=== PATIENT | male | born 1950 | race Caucasian/White ===

== ENCOUNTER 2020-07-03 15:48 | Outpatient (REF) | payer BC, SELFPAY | END 2020-07-03 15:49 | disposition home or self-care (01) | LOC: HO.LAB 15:48 | PROVIDERS: PCP Internal Medicine; Visit Provider Internal Medicine | DX: Z20.828 Contact with and (suspected) exposure to other viral communicable diseases (principal) | CPT/HCPCS: C9803; U0003 ==

== ENCOUNTER 2022-04-07 06:19 | Outpatient (REF) | payer MEDICARE, SELFPAY ==
[2022-04-07 11:28] LABS: MANUAL DIFF FLAG NO
[2022-04-07 11:38] LABS: Basophils Absolute Auto 0.1 X10*3/uL (0.0-0.2); Basophils Percent Auto 0.7 % (0-2); Eosinophils Absolute Auto 0.2 X10*3/uL (0.0-0.4); Eosinophils Percent Auto 2.6 % (0-4); Hematocrit 44.3 % (42.0-52.0); Hemoglobin 15.1 g/dl (14.0-18.0); Imm Gran Abs Auto 0.02 X10*3/uL (0.00-0.03); Imm Gran Pct Auto 0.2 % (0.0-0.4); Lymphocytes Absolute Auto 2.3 X10*3/uL (1.2-4.9); Lymphocytes Percent Auto 27.6 % (20-40); Mean Corpuscular HGB Conc 34.1 g/dl (31.0-36.0); Mean Corpuscular Hemoglobin 32.1 pg (27.0-33.0); Mean Corpuscular Volume 94.3 fL (80.0-98.0); Mean Platelet Volume 9.4 fL (9.4-12.4); Monocytes Absolute Auto 0.7 X10*3/uL (0.1-1.2); Monocytes Percent Auto 7.8 % (2-11); Neutrophils Absolute Auto 5.1 x10*3/uL (2.0-8.3); Neutrophils Percent Auto 61.1 % (45-73); Platelet Count 206 X10*3/uL (160-400); Red Cell Distribution Width 12.6 % (11.0-16.0); White Blood Count 8.4 X10*3/uL (4.8-10.8)
[2022-04-07 12:24] LABS: Alanine Aminotransferase 23 U/L (0-40); Albumin Level 4.5 g/dL (3.5-5.0); Alkaline Phosphatase 75 U/L (39-117); Anion Gap 15 (12-20); Aspartate Amino Transferase 20 U/L (5-37); Bilirubin Total 0.7 mg/dL (0.0-1.0); Blood Urea Nitrogen 21 mg/dL (9-16); Calcium 9.2 mg/dL (8.4-10.2); Carbon Dioxide 25 mmol/L (22-29); Chloride 106 mmol/L (96-108); Cholesterol 171 mg/dL; Estimated Glomerular Filt Rate > 60; Glucose Fasting 124 mg/dL (60-99); HDL Cholesterol 55 mg/dL; LDL Cholesterol Calculated 102 mg/dl; Potassium 4.2 mmol/L (3.3-5.1); Sodium 142 mmol/L (135-145); Total Protein 7.1 g/dL (6.5-8.0); Triglycerides 70 mg/dL
[2022-04-07 12:29] LABS: PSA,Total (Free>4and<10) 2.17 ng/mL (0.00-4.00); Thyroid Stimulating Hormone 1.43 uIU/mL (0.32-4.0)
[2022-04-07 13:10] LABS: Folate 6.1 ng/mL (> or = 4.0); Vitamin B12 935 pg/mL (200-900)
== END 2022-04-07 06:20 | disposition home or self-care (01) ==
LOC: HO.HMGCLDS 06:19
PROVIDERS: PCP Internal Medicine; Visit Provider Internal Medicine
DX: Z12.5 Encounter for screening for malignant neoplasm of prostate (principal); I10 Essential (primary) hypertension; E55.9 Vitamin D deficiency, unspecified; G62.9 Polyneuropathy, unspecified; N52.9 Male erectile dysfunction, unspecified; F41.9 Anxiety disorder, unspecified
CPT/HCPCS: 36415; 80053; 80061; 82306; 82607; 82746; 84153; 84425; 84443; 85025

== ENCOUNTER 2022-04-15 14:02 | Outpatient (REF) | payer MEDICARE, SELFPAY ==
[2022-04-19 12:51] LABS: Vitamin B1 16 nmol/L (8-30)
== END 2022-04-15 14:03 | disposition home or self-care (01) ==
LOC: HO.HMGCLDS 14:02
PROVIDERS: PCP Internal Medicine; Visit Provider Internal Medicine
DX: I10 Essential (primary) hypertension (principal); G62.9 Polyneuropathy, unspecified; E55.9 Vitamin D deficiency, unspecified
CPT/HCPCS: 36415; 84425

== ENCOUNTER 2022-06-17 09:05 | Outpatient (REF) | payer MEDICARE, BC, SELFPAY ==
--- NOTE | ~2022-06-17 | MR_ITS ---
EXAMINATION: MR LUMBAR SPINE WITHOUT CONTRAST CLINICAL INFORMATION: Neuropathy. COMPARISON: There are no prior studies available for comparison. TECHNIQUE: MRI of the lumbar spine was obtained using routine sequences without contrast. FINDINGS: VERTEBRAL BODIES AND PARASPINAL STRUCTURES: There is a mild dextroscoliosis. There is a mild retrolisthesis of L5 on S1. There is multilevel narrowing of intervertebral disc height throughout the lumbar spine with disc desiccation. There are multilevel degenerative endplate contour changes. There is mild edematous endplate signal at L3-L4 and mixed edematous and fatty endplate signal changes are seen at L5-S1 toward the right. There are moderate fatty endplate signal changes at L2-L3 There are Schmorl's nodes at the adjacent endplates at L2-L3. Vertebral body heights maintained and no fractures are demonstrated. Overall, marrow signal is homogenous. The infrarenal abdominal aorta is tortuous and ectatic, but is not frankly aneurysmal. The visualized pelvic structures are unremarkable. CONUS MEDULLARIS AND CAUDA EQUINA: Normal, terminating at the level of L1-L2. The lower thoracic spinal cord appears normal. The cauda equina nerve roots and filum terminale appear normal. SPINAL LEVELS: T11-T12: On the sagittal images there is a small disc protrusion posteriorly in the midline with some effacement of CSF ventral to the spinal cord, but there is no compression of the cord and the neural foramina are patent. T12-L1: The facet joints appear normal bilaterally. Disc contour is normal. There is no central stenosis or foraminal narrowing. L1-L2: There is mild bilateral facet arthropathy. There is a diffuse disc bulge without significant mass effect on the thecal sac and there is no central stenosis. There is mild right foraminal narrowing without definite exiting nerve root impingement. L2-L3: There is moderate bilateral facet arthropathy. There is a broad-based posterior disc protrusion with an extruded component along the superior body of L3 posteriorly. There is marked narrowing of the bilateral subarticular recesses with impingement on the traversing L2 nerve roots. There is moderate to severe central stenosis. There is a right foraminal disc protrusion impinging on the exiting right L2 nerve root. L3-L4: There is moderate bilateral facet arthropathy. There is a broad-based posterior disc protrusion which flattens the ventral thecal sac and narrows the bilateral subarticular recesses with impingement on the traversing L4 nerve roots. There is moderate central stenosis. There are bilateral foraminal disc protrusions impinging on the exiting L3 nerve roots, more prominently on the left. L4-L5: There is moderate bilateral facet arthropathy. There is a posterior disc protrusion which is more prominent on the right with narrowing of the right subarticular recess and with impingement on the traversing right L5 nerve root. There are bilateral foraminal disc protrusions extending far laterally on the left and there is impingement on the exiting right and extraforaminal left L4 nerve roots. There is mild central stenosis. L5-S1: There is moderate to severe bilateral facet arthropathy. There is a posterior disc protrusion which is more prominent on the right and extends into the right neural foramen with impingement on the exiting and extraforaminal right L5 nerve root. There is mild impingement on the exiting left L5 nerve root. There is no central stenosis. MR/MR lumbar spine wo con IMPRESSION: 1. At L2-L3 there is facet arthropathy and and there is a broad-based posterior disc protrusion/extrusion. There is narrowing of the bilateral subarticular recesses and there is moderate to severe central stenosis. A right foraminal disc protrusion impinges on the exiting right L2 nerve root. 2. At L4-L5 there is facet arthropathy and there is a posterior disc protrusion extending into the bilateral neural foramina, and far laterally on the left with impingement on the exiting right and extraforaminal left L4 nerve roots. There is mild central stenosis. 3. At L3-L4 there is facet arthropathy and there is a posterior disc protrusion with narrowing of the subarticular recesses and with impingement on the traversing L4 nerve roots. There is moderate central stenosis. There is bilateral foraminal nerve root impingement. 4. At L5-S1 there is facet arthropathy and there is a posterior disc protrusion extending far laterally on the right with impingement on the extraforaminal right L5 nerve root. There is mild impingement on the exiting left L5 nerve root. There is no central stenosis.
== END 2022-06-17 09:06 | disposition home or self-care (01) ==
LOC: HO.MRI 09:05
PROVIDERS: Visit Provider Internal Medicine
DX: G62.9 Polyneuropathy, unspecified (principal)
CPT/HCPCS: 72148

== ENCOUNTER 2023-01-29 11:04 | Day surgery (SDC) | payer MEDICARE, SELFPAY ==
--- NOTE | 2023-01-28 14:15 | HO.ANESPROP2 ---
Documented by User: Sarah Valenzuela NP 01/28/23 14:16 HPI - Anesthesia Eval Consult details Narrative: 72yo M for Colonoscopy [facility] Past Medical History Medical History BPH (benign prostatic hyperplasia) Gastritis HTN (hypertension) Tubular adenoma Surgical History Surgical History H/O colonoscopy Social History Social History Patient Tobacco Use Status: Never used Tobacco Use of substances other than those prescribed or required for medical reasons: No Are you DNR?: No Advance Directives: No Advance Directives Information Provided: Yes Recently lost weight without trying: No Nutrition Risks: No Nutritional Risk Meds Allergies Allergy/AdvReac Type Severity Reaction Status Date / Time mold Allergy Unknown Verified 01/28/23 14:14 ragweed pollen Allergy Unknown Verified 01/28/23 14:14 Home Medications Medication Instructions Recorded Confirmed Last Taken Type nifedipine 30 mg tablet,extended 30 mg PO DAILY 01/28/23 01/28/23 Unknown History release tamsulosin 0.4 mg capsule 0.4 mg PO DAILY 01/28/23 01/28/23 Unknown History Exam Exam Date and Time: January 28, 2023 141 Assessment and Plan Assessment Anesthesia Assessment: Chart Reviewed Documented by User: Cecile Parker MD 01/29/23 12:01 [facility] Past Medical History Medical History BPH (benign prostatic hyperplasia) Gastritis HTN (hypertension) Tubular adenoma Family History Family history of problems with anesthesia: No Surgical History Surgical History H/O colonoscopy History of Problems with Anesthesia: No Social History Social History Patient Tobacco Use Status: Never used Tobacco Use of substances other than those prescribed or required for medical reasons: No Are you DNR?: No Advance Directives: No Advance Directives Information Provided: Yes Recently lost weight without trying: No Nutrition Risks: No Nutritional Risk Meds Allergies Allergy/AdvReac Type Severity Reaction Status Date / Time mold Allergy Unknown Verified 01/28/23 14:14 ragweed pollen Allergy Unknown Verified 01/28/23 14:14 Home Medications Medication Instructions Recorded Confirmed Last Taken Type nifedipine 30 mg tablet,extended 30 mg PO DAILY 01/28/23 01/28/23 Unknown History release tamsulosin 0.4 mg capsule 0.4 mg PO DAILY 01/28/23 01/28/23 Unknown History Exam Airway Mallampati Class: II TM Dist: >3cm Neck ROM: Full Heart: rrr Lungs: cta Other: thinks AAKASH but not diagnosed Assessment and Plan Assessment Anesthesia Assessment: Anesthesia Plan Discussed Final Anesthetic Review Family History of Problems with Anesthesia: No History of Problems with Anesthesia: No NPO: Yes ASA Class: II Final Preanesthetic Review: No Changes in Pt Med Stat, Meds/Allgs Chart Reviewed, Consent Obtained/Reviewed and Anes Risks/Benef Reviewed Patient Risk: Low Procedure Risk: Low Anesthetic Plan Anesthetic Plan: MAC: Disposition: Standard PACU
[2023-01-29 11:09] VITALS: BMI 30.1
[2023-01-29 11:14] VITALS: BP 149/89; PULSE 67; RESP 16; TEMP 36.6; O2SAT 96
[2023-01-29] MEDS: Lactated Ringers 1,000 ML 100 ML IVCONT (11:30)
[2023-01-29 12:53] VITALS: BP 135/70; PULSE 60; RESP 16; TEMP 36.2; O2SAT 95
--- NOTE | 2023-01-29 12:56 | P.BOP_ITS ---
Brief Operative Note Date of Service: 01/29/23 Pre-op diagnosis: Screening Post-op diagnosis: other (Diverticulosis) Procedure: Colonoscopy to the cecum and TI Surgeon: Carlos Dunlap Anesthesia: MAC Was an Building Cleaning Supervisor used for this Procedure?: No Estimated blood loss (mL): 0 Pathology: none sent Condition: stable Disposition: PACU
[2023-01-29 13:08] VITALS: BP 142/79; PULSE 69; RESP 20; TEMP 36.4; O2SAT 95
[2023-01-29 13:23] VITALS: BP 147/90; PULSE 70; RESP 20; TEMP 36.4; O2SAT 95
--- NOTE | 2023-01-29 13:25 | OP_ITS ---
DATE OF SERVICE: 01/29/2023 SURGEON: Carlos Dunlap MD INDICATIONS: The patient presents for evaluation of colorectal cancer screening and prior history of tubular adenoma of the colon. Full consent has been obtained from him for this, including risks of bleeding and perforation. PREOPERATIVE DIAGNOSIS: POSTOPERATIVE DIAGNOSIS: PROCEDURE PERFORMED: Colonoscopy to the cecum and terminal ileum. ESTIMATED BLOOD LOSS: COMPLICATIONS: ANESTHESIA: Monitored anesthesia care. ASSISTANTS: SPECIMENS: PREOPERATIVE DIAGNOSES: Colorectal cancer screening and personal history of tubular adenoma of the colon. POSTOPERATIVE DIAGNOSES: Colorectal cancer screening and personal history of tubular adenoma of the colon, sigmoid diverticulosis, and internal hemorrhoids. DESCRIPTION OF PROCEDURE: The patient was placed in the left lateral decubitus position. The digital rectal exam revealed no abnormalities. The Olympus video pediatric colonoscope was entered into the rectum and advanced easily to the cecum. Once in the cecum, I did identify normal-appearing cecal pouch with appendiceal orifice and a normal-appearing ileocecal valve. The terminal ileum was cannulated and appeared normal. The scope was withdrawn back in the colon. The entire cecum and ileocecal valve appeared normal. The scope was slowly withdrawn assessing all mucosal surfaces carefully. Preparation was excellent. I did not visualize any sign of polyps, colitis, nor angiodysplasia. There was a mild amount of sigmoid diverticulosis. In the rectum, scope was retroflexed visualizing internal hemorrhoids, but no other pathology. The rectal mucosa appeared normal. Scope was straightened and withdrawn from the patient. He tolerated the procedure well and was returned to recovery area in stable condition. IMPRESSION: 1. Sigmoid diverticulosis. 2. Internal hemorrhoids. PLAN: Given his age and the fact that this was his 3rd negative colonoscopy in a row, I do not think he will need any further screening colonoscopies at this point. He will otherwise see me on a p.r.n. basis. MD TONY Jacome/MYRON / [phone] MTDDorothy
== END 2023-01-29 13:52 | disposition home or self-care (01) ==
PROVIDERS: PCP Internal Medicine; Visit Provider Internal Medicine
PROC: 0DJD8ZZ Inspection of Lower Intestinal Tract, Via Natural or Artificial Opening Endoscopic (ICD-10-PCS; CPT 45378; principal; 2023-01-29 11:50)
DX: Z12.11 Encounter for screening for malignant neoplasm of colon (principal); Z86.010 Personal history of colon polyps; K57.30 Diverticulosis of large intestine without perforation or abscess without bleeding; K64.8 Other hemorrhoids; N40.0 Benign prostatic hyperplasia without lower urinary tract symptoms; I10 Essential (primary) hypertension; Z79.899 Other long term (current) drug therapy
CPT/HCPCS: G0105

== ENCOUNTER 2023-05-03 08:57 | Outpatient (REF) | payer MEDICARE, SELFPAY ==
[2023-05-03 11:57] LABS: MANUAL DIFF FLAG NO
[2023-05-03 12:07] LABS: Basophils Percent Auto 0.6 % (0-2); Eosinophils Absolute Auto 0.2 X10*3/uL (0.0-0.4); Eosinophils Percent Auto 2.4 % (0-4); Hematocrit 44.2 % (42.0-52.0); Hemoglobin 15.2 g/dl (14.0-18.0); Imm Gran Abs Auto 0.02 X10*3/uL (0.00-0.03); Imm Gran Pct Auto 0.3 % (0.0-0.4); Lymphocytes Absolute Auto 1.9 X10*3/uL (1.2-4.9); Lymphocytes Percent Auto 28.9 % (20-40); Mean Corpuscular HGB Conc 34.4 g/dl (31.0-36.0); Mean Corpuscular Hemoglobin 32.1 pg (27.0-33.0); Mean Corpuscular Volume 93.2 fL (80.0-98.0); Mean Platelet Volume 9.8 fL (9.4-12.4); Monocytes Absolute Auto 0.6 X10*3/uL (0.1-1.2); Monocytes Percent Auto 8.8 % (2-11); Neutrophils Absolute Auto 3.9 x10*3/uL (2.0-8.3); Platelet Count 230 X10*3/uL (160-400); Red Blood Count 4.74 X10*6/uL (4.60-5.80); Red Cell Distribution Width 12.4 % (11.0-16.0); White Blood Count 6.7 X10*3/uL (4.8-10.8)
[2023-05-03 12:29] LABS: Alanine Aminotransferase 26 U/L (0-40); Albumin Level 4.6 g/dL (3.5-5.0); Alkaline Phosphatase 72 U/L (39-117); Anion Gap 16 (12-20); Aspartate Amino Transferase 23 U/L (5-37); Bilirubin Total 0.7 mg/dL (0.0-1.0); Blood Urea Nitrogen 21 mg/dL (9-16); C Reactive Protein 0.29 mg/dL (< or = 0.50); Calcium 9.5 mg/dL (8.4-10.2); Carbon Dioxide 23 mmol/L (22-29); Chloride 106 mmol/L (96-108); Estimated Glomerular Filt Rate > 60; Glucose Random 109 mg/dL (60-115); Potassium 4.3 mmol/L (3.3-5.1); Sodium 141 mmol/L (135-145); Total Protein 7.6 g/dL (6.5-8.0)
[2023-05-03 13:01] LABS: Erythrocyte Sedimentation Rate 7 MM/HR (0-15)
== END 2023-05-03 08:58 | disposition home or self-care (01) ==
LOC: HO.HMGCLDS 08:57
PROVIDERS: PCP Internal Medicine; Visit Provider Internal Medicine
DX: H47.011 Ischemic optic neuropathy, right eye (principal); I10 Essential (primary) hypertension; F51.01 Primary insomnia; E55.9 Vitamin D deficiency, unspecified
CPT/HCPCS: 36415; 80053; 85025; 85652; 86140

== ENCOUNTER 2023-05-12 11:45 | Outpatient (REF) | payer MEDICARE, SELFPAY ==
[2023-05-12 14:27] LABS: Folate 11.8 ng/mL (> or = 4.0); Vitamin B12 1034 pg/mL (200-900)
[2023-05-14 02:17] LABS: Lyme Abs Screen <0.90 index
[2023-05-17 09:59] LABS: IgA 378 mg/dL (70-320); IgG 979 mg/dL (600-1540); IgM 99 mg/dL (50-300)
[2023-05-17 13:59] LABS: Anti Nuclear Antibody Screen NEGATIVE (NEGATIVE)
[2023-05-17 14:14] LABS: Vitamin B1 14 nmol/L (8-30)
== END 2023-05-12 11:46 | disposition home or self-care (01) ==
LOC: HO.LAB 11:45
PROVIDERS: PCP Internal Medicine; Visit Provider Psychiatry & Neurology Neurology
DX: G62.9 Polyneuropathy, unspecified (principal)
CPT/HCPCS: 36415; 82607; 82746; 82784; 84425; 86038; 86334; 86617; 86618

== ENCOUNTER → 2023-05-19 11:22 | Outpatient (REF) | payer MEDICARE, SELFPAY | LOC: HO.SL 11:22 | PROVIDERS: PCP Internal Medicine; Visit Provider Internal Medicine | DX: G47.33 Obstructive sleep apnea (adult) (pediatric) (principal) | CPT/HCPCS: 95806 ==

== ENCOUNTER → 2023-05-19 19:00 | Outpatient (BNV) | payer MEDICARE, SELFPAY | PROVIDERS: PCP Internal Medicine; Visit Provider Internal Medicine | DX: G47.33 Obstructive sleep apnea (adult) (pediatric) (principal) | CPT/HCPCS: 95806 ==

== ENCOUNTER 2023-05-26 10:07 | Outpatient (AMB) | payer MEDICARE, SELFPAY ==
--- NOTE | 2023-05-26 10:09 | MHC.OFFVIS ---
Intake Vital Signs 05/26/23 10:17 Weight 213 lb BP 120/70 Blood Pressure Location Lt brachial Position Sitting Pulse 66 Pulse Oximetry (%) 96 Intake Visit Reasons: Somnolence Allergies mold Allergy (Verified 05/26/23 10:47) Unknown ragweed pollen Allergy (Verified 05/26/23 10:47) Unknown Medication List - Last Reconciled 05/26/23 by Efren Swann MD cyanocobalamin (vitamin B-12) 1,000 mcg PO DAILY nifedipine ER 30 mg PO DAILY tadalafil (Cialis) 20 mg PO DAILY PRN tamsulosin 0.4 mg PO DAILY trazodone 50 mg PO BEDTIME PRN Do you need a note to return to daycare/school/sports/work: No HPI Somnolence HPI Details This 72 years old gentleman is being seen for the 1st time in relation to his sleep apnea. 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 HE DOES HAVE HISTORY OF LOUD SNORING AT NIGHT FOR MANY YEARS. HE HAS PUT ON WEIGHT FOR THE PAST 5-6 YEARS. HE HAS ALWAYS HAD PROBLEM WITH SLEEPING, SLEEP ONSET TYPE INSOMNIA, AND HAS USED TRAZODONE 50 MG AT BEDTIME P.R.N.. HE ALSO HAS HAD HYPERTENSION SOME YEARS. NO OTHER SIGNIFICANT MEDICAL PROBLEMS. RECENTLY HE HAS SOME RIGHT EYE VISUAL PROBLEM AND DIAGNOSED TO HAVE ISCHEMIC RETINOPATHY, FOR WHICH HE WAS CHECKED AT [facility]. HE WAS TOLD THAT 1 OF THE CAUSES OF THIS ISSUE CAN BE SLEEP APNEA. SO FOR THIS REASON HE HAD A HOME-BASED SLEEP STUDY ORDERED BY HIS PCP DR. FALL . PATIENT COMES TODAY TO DISCUSS WITH ME ABOUT HIS SLEEP STUDY .AND FOR MANAGEMENT [facility] Medical History (Updated 05/26/23 @ 12:06 by Efren Swann MD) Nocturnal hypoxemia RADHA (obstructive sleep apnea) Obesity (BMI 30-39.9) BPH (benign prostatic hyperplasia) HTN (hypertension) Gastritis Tubular adenoma Surgical History H/O colonoscopy Social History Patient Tobacco Use Status: Never used Tobacco Review of Systems Const All systems reviewed & are unremarkable except as noted in HPI and below Eyes Reports blurry vision (Rt eye) ENT Reports no additional complaints Card Denies chest pain, Denies irregular heart rhythm and Denies leg edema Resp Reports as per HPI and Reports no additional complaints GI Reports no additional complaints Reports no additional complaints Musc Reports no additional complaints Skin/Breast Reports system reviewed and no additional complaints, except as documented Neuro Reports no additional complaints Psych Reports no additional complaints Endo Reports no additional complaints Anuj/Lymph Reports no additional complaints Aller/Immun Reports no additional complaints Physical Exam Vital Signs: Last Vital Signs Pulse 66 05/26/23 10:17 BP 120/70 05/26/23 10:17 Pulse Ox 96 05/26/23 10:17 Const General: healthy appearing, comfortable, no acute distress, alert and awake Orientation/consciousness: patient oriented x3 HEENT Head: Yes normal to inspection General nose exam: No nasal polyps present and No nasal discharge present Face and sinus: Yes sinuses nontender Mouth: oropharynx normal Throat: Yes posterior oropharynx normal Eyes General: appearance normal, both eyes and all related structures Neck Neck: Yes normal visual inspection, Yes no lymphadenopathy, Yes trachea midline and Yes no JVD Thyroid: Thyroid normal Chest Chest palpation & inspection: normal inspection of the chest, normal palpation of entire chest wall and no tenderness Resp Effort & Inspection: normal respiratory effort Auscultation: clear to auscultation bilaterally, no crackles and no wheezes Cardio Palpation: normal PMI Rate: regular rate Rhythm: regular rhythm Heart sounds: no gallops and no murmurs Peripheral pulses: Peripheral pulses 2+ throughout GI Palpation (GI): Soft to palpation, nontender, No hepatosplenomegaly present and no masses Auscultation: normal bowel sounds Back/Spine/Pelvis Thoracic/Lumbar Spine: thoracic and lumbar spine normal to inspection Skin General skin exam: no rashes or lesions noted Neuro General: patient oriented x3 and no focal motor deficits Cranial nerves: Yes CN's II-XII intact bilaterally Extrem General: Yes normal to inspection, Yes no clubbing, cyanosis or edema and Yes no calf tenderness Psych Speech and movement: Normal speech and movement present Results Reviewed Results Reviewed: Report of sleep study on 05/19/2023 is reviewed. TOTAL SLEEP TIME AHI 33.7 C/W SEVERE OBSTRUCTIVE SLEEP APNEA . HE SLEPT MOSTLY IN RIGHT LATERAL AND LEFT. LATERAL POSITIONS SNORING FOR 16% OF THE SLEEP TIME. AVERAGE O2 SAT 90% LOWEST O2 SAT 80% AND O2 SAT BELOW 88% FOR 38 MINUTES Assessment & Plan Assessment & Plan (1) Obesity (BMI 30-39.9): Comment: PATIENT IS MODERATELY OVERWEIGHT, HE IS ALREADY TRYING TO REDUCE HIS WEIGHT, HE UNDERSTANDS ABOUT HIS DIET AND ALSO IMPORTANCE OF DAILY EXERCISE SUCH WALKING A FEW MILES PER DAY. Code(s): E66.9 - Obesity, unspecified (2) RADHA (obstructive sleep apnea): Comment: CONFIRMED BY HOME SLEEP STUDY THAT HE HAS RATHER SEVERE OBSTRUCTIVE SLEEP APNEA. THIS MAY HAVE BEEN GOING ON FOR THE LAST FEW YEARS. HE IS WELL EDUCATED AND UNDERSTANDS VERY WELL ABOUT THE SLEEP APNEA AND IMPORTANCE OFF ITS TREATMENT. HE WILL BE AGREEABLE TO START USING THE CPAP. I HAVE SENT ORDERS TO THE DME SUPPLIER FOR CPAP DEVICE FULLFACE MASK AND PRESSURE SETTING OF 6-20 CMs DISCUSSED WITH HIM ABOUT THE PROPER USE OF CPAP. WILL BE CHECKED IN 6 WEEKS TO GO OVER HIS COMPLIANCE AND BENEFITS. Code(s): G47.33 - Obstructive sleep apnea (adult) (pediatric) (3) Nocturnal hypoxemia: Code(s): G47.34 - Idiopathic sleep related nonobstructive alveolar hypoventilation Coding Level of Care Code New Pt Level 3 (23615) Diagnoses Obesity (BMI 30-39.9) E66.9 RADHA (obstructive sleep apnea) G47.33 Nocturnal hypoxemia G47.34
[2023-05-26 10:17] VITALS: BP 120/70; PULSE 66; O2SAT 96
== END 2023-05-26 10:47 | disposition home or self-care (01) ==
PROVIDERS: PCP Internal Medicine; Referring Provider Internal Medicine; Visit Provider Internal Medicine
DX: G47.33 Obstructive sleep apnea (adult) (pediatric) (principal); G47.34 Idiopathic sleep related nonobstructive alveolar hypoventilation
CPT/HCPCS: 99213

== ENCOUNTER → 2023-05-26 10:07 | Outpatient (BNVA) | payer MEDICARE, SELFPAY | PROVIDERS: PCP Internal Medicine; Visit Provider Internal Medicine | DX: G47.34 Idiopathic sleep related nonobstructive alveolar hypoventilation (principal); G47.33 Obstructive sleep apnea (adult) (pediatric); E66.9 Obesity, unspecified | CPT/HCPCS: 99212 ==

== ENCOUNTER 2023-07-06 13:23 | Outpatient (AMB) | payer MEDICARE, BC, SELFPAY ==
--- NOTE | 2023-07-06 13:35 | A.OFFVIS_ITS ---
Intake Vital Signs 07/06/23 13:36 Height 5 ft 10 in Weight 214 lb 15.211 oz BMI 30.8 BP 130/78 Blood Pressure Location Lt brachial Position Sitting Pulse 57 Pulse Source Pulse Oximeter Pulse Oximetry (%) 97 Oxygen Delivery Method Room Air Intake Visit Reasons: Somnolence Intake Note: pt is here for follow up on starting of cpap, he is still adjusting. 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 RECENTLY DIAGNOSED TO HAVE OBSTRUCTIVE SLEEP APNEA RELATIVELY SEVERE, WHICH WAS CAUSING DAYTIME SOMNOLENCE. HE HAS BEEN STARTED ON CPAP THERAPY WHICH HE HAS USED ONLY FOR 18 NIGHTS SO FOR, AND HE ALREADY FINDS A BIG DIFFERENCE IN HIS SLEEP. HE USED TO WAKE UP 4-5 TIMES PER NIGHT DUE TO BPH AND NOW HE WAKES UP ONLY ABOUT TWICE. HE IS USING NASAL MASK, AND IS TRYING TO ADJUST THE PRESSURE OF THE STRAPS. OVERALL HE IS VERY COMPLIANT AND BENEFITING. [facility] Medical History Nocturnal hypoxemia RADHA (obstructive sleep apnea) Obesity (BMI 30-39.9) BPH (benign prostatic hyperplasia) HTN (hypertension) Gastritis Tubular adenoma Surgical History H/O colonoscopy Social History Patient Tobacco Use Status: Never used Tobacco Review of Systems Const All systems reviewed & are unremarkable except as noted in HPI and below Eyes Reports blurry vision (Rt eye) ENT Reports no additional complaints Card Denies chest pain, Denies irregular heart rhythm and Denies leg edema Resp Reports as per HPI and Reports no additional complaints GI Reports no additional complaints Reports no additional complaints Musc Reports no additional complaints Skin/Breast Reports system reviewed and no additional complaints, except as documented Neuro Reports no additional complaints Psych Reports no additional complaints Endo Reports no additional complaints Anuj/Lymph Reports no additional complaints Aller/Immun Reports no additional complaints Physical Exam Vital Signs: Last Vital Signs Pulse 57 07/06/23 13:36 BP 130/78 07/06/23 13:36 Pulse Ox 97 07/06/23 13:36 Oxygen Delivery Method Room Air 07/06/23 13:36 BMI result Body Mass Index 30.8 Const General: healthy appearing, comfortable, no acute distress, alert and awake Orientation/consciousness: patient oriented x3 HEENT Head: Yes normal to inspection General nose exam: No nasal polyps present and No nasal discharge present Face and sinus: Yes sinuses nontender Mouth: oropharynx normal Throat: Yes posterior oropharynx normal Eyes General: appearance normal, both eyes and all related structures Neck Neck: Yes normal visual inspection, Yes no lymphadenopathy, Yes trachea midline and Yes no JVD Thyroid: Thyroid normal Chest Chest palpation & inspection: normal inspection of the chest, normal palpation of entire chest wall and no tenderness Resp Effort & Inspection: normal respiratory effort Auscultation: clear to auscultation bilaterally, no crackles and no wheezes Cardio Palpation: normal PMI Rate: regular rate Rhythm: regular rhythm Heart sounds: no gallops and no murmurs Peripheral pulses: Peripheral pulses 2+ throughout GI Palpation (GI): Soft to palpation, nontender, No hepatosplenomegaly present and no masses Auscultation: normal bowel sounds Back/Spine/Pelvis Thoracic/Lumbar Spine: thoracic and lumbar spine normal to inspection Skin General skin exam: no rashes or lesions noted Neuro General: patient oriented x3 and no focal motor deficits Cranial nerves: Yes CN's II-XII intact bilaterally Extrem General: Yes normal to inspection, Yes no clubbing, cyanosis or edema and Yes no calf tenderness Psych Speech and movement: Normal speech and movement present Results Reviewed Results Reviewed: COMPLIANCE REPORT REVIEWED. HE HAS BEEN USING CPAP ONLY FOR 18 NIGHTS 100% OF THE TIME. AVERAGE USE IT PER NIGHT 7 HOURS 47 MINUTES. PRESSURE USED IS 10-11 . THERE IS NO SIGNIFICANT AIR LEAK. RESIDUAL AHI ONLY 2.7 CM. Assessment & Plan Assessment & Plan (1) Obesity (BMI 30-39.9): Comment: PATIENT IS MODERATELY OVERWEIGHT, HE IS ALREADY TRYING TO REDUCE HIS WEIGHT, HE UNDERSTANDS ABOUT HIS DIET AND ALSO IMPORTANCE OF DAILY EXERCISE SUCH WALKING A FEW MILES PER DAY. Code(s): E66.9 - Obesity, unspecified (2) RADHA (obstructive sleep apnea): Comment: CONFIRMED BY HOME SLEEP STUDY THAT HE HAS RATHER SEVERE OBSTRUCTIVE SLEEP APNEA. THIS MAY HAVE BEEN GOING ON FOR THE LAST FEW YEARS. HE IS USING HIS CPAP VERY REGULARLY. NASAL MASK, AUTO PAP MODE, PRESSURE SETTING 6-20 CM. COMPLIANCE SO FOR IS 100%. RESIDUAL AHI ONLY 2.7. HE IS SLEEPING MUCH BETTER. Code(s): G47.33 - Obstructive sleep apnea (adult) (pediatric) Coding Level of Care Code Est Pt Level 3 (92581) Diagnoses Obesity (BMI 30-39.9) E66.9 RADHA (obstructive sleep apnea) G47.33
[2023-07-06 13:36] VITALS: BP 130/78; PULSE 57; O2SAT 97; BMI 30.8
== END 2023-07-06 13:50 | disposition home or self-care (01) ==
PROVIDERS: PCP Internal Medicine; Visit Provider Internal Medicine
DX: E66.9 Obesity, unspecified (principal); G47.33 Obstructive sleep apnea (adult) (pediatric)
CPT/HCPCS: 99213

== ENCOUNTER → 2023-07-06 13:23 | Outpatient (BNVA) | payer MEDICARE, SELFPAY | PROVIDERS: PCP Internal Medicine; Visit Provider Internal Medicine | DX: E66.9 Obesity, unspecified (principal); G47.33 Obstructive sleep apnea (adult) (pediatric); Z68.30 Body mass index [BMI] 30.0-30.9, adult | CPT/HCPCS: 99212 ==

== ENCOUNTER 2023-09-07 13:31 | Outpatient (AMB) | payer MEDICARE, SELFPAY ==
[2023-09-07 13:43] VITALS: BP 130/70; PULSE 69; O2SAT 97; BMI 30.5
--- NOTE | 2023-09-07 13:43 | MHC.OFFVIS ---
Intake Vital Signs 09/07/23 13:43 Height 5 ft 10 in Weight 212 lb 11.937 oz BMI 30.5 BP 130/70 Blood Pressure Location Lt brachial Position Sitting Pulse 69 Pulse Source Pulse Oximeter Pulse Oximetry (%) 97 Oxygen Delivery Method Room Air Intake Visit Reasons: Somnolence Intake Note: pt is here for follow up of RADHA, using the machine, sometimes in am, slightly congested, but he is getting up less, Client Services Coordinator Required: No Allergies mold Allergy (Verified 09/07/23 13:58) Unknown ragweed pollen Allergy (Verified 09/07/23 13:58) Unknown Medication List - Last Reconciled 09/07/23 by Efren Swann MD multivitamin (Daily Multi-Vitamin tablet) 1 tab PO DAILY nifedipine ER 30 mg PO DAILY tadalafil (Cialis) 20 mg PO DAILY PRN tamsulosin 0.4 mg PO DAILY trazodone 50 mg PO BEDTIME PRN Do you need a note to return to daycare/school/sports/work: No HPI Somnolence HPI Details 72 years old very pleasant gentleman who is moderately obese, and has diagnosis of obstructive sleep apnea, comes after 6 months for his routine follow-up. Uses CPAP regularly every night except for few nights during the month when he may have some nasal congestion. CPAP device works perfectly well. He has no issue with the nasal mask, feels comfortable. He uses humidification regularly. He has no daytime sleepiness. [facility] Medical History Nocturnal hypoxemia RADHA (obstructive sleep apnea) Obesity (BMI 30-39.9) BPH (benign prostatic hyperplasia) HTN (hypertension) Gastritis Tubular adenoma Surgical History H/O colonoscopy Social History Patient Tobacco Use Status: Never used Tobacco Review of Systems Const All systems reviewed & are unremarkable except as noted in HPI and below Eyes Reports blurry vision (Rt eye) ENT Reports no additional complaints Card Denies chest pain, Denies irregular heart rhythm and Denies leg edema Resp Reports as per HPI and Reports no additional complaints GI Reports no additional complaints Reports no additional complaints Musc Reports no additional complaints Skin/Breast Reports system reviewed and no additional complaints, except as documented Neuro Reports no additional complaints Psych Reports no additional complaints Endo Reports no additional complaints Anuj/Lymph Reports no additional complaints Aller/Immun Reports no additional complaints Physical Exam Vital Signs: Last Vital Signs Pulse 69 09/07/23 13:43 BP 130/70 09/07/23 13:43 Pulse Ox 97 09/07/23 13:43 Oxygen Delivery Method Room Air 09/07/23 13:43 BMI result Body Mass Index 30.5 Const General: healthy appearing, comfortable, no acute distress, alert and awake Orientation/consciousness: patient oriented x3 HEENT Head: Yes normal to inspection General nose exam: No nasal polyps present and No nasal discharge present Face and sinus: Yes sinuses nontender Mouth: oropharynx normal Throat: Yes posterior oropharynx normal Eyes General: appearance normal, both eyes and all related structures Neck Neck: Yes normal visual inspection, Yes no lymphadenopathy, Yes trachea midline and Yes no JVD Thyroid: Thyroid normal Chest Chest palpation & inspection: normal inspection of the chest, normal palpation of entire chest wall and no tenderness Resp Effort & Inspection: normal respiratory effort Auscultation: clear to auscultation bilaterally, no crackles and no wheezes Cardio Palpation: normal PMI Rate: regular rate Rhythm: regular rhythm Heart sounds: no gallops and no murmurs Peripheral pulses: Peripheral pulses 2+ throughout GI Palpation (GI): Soft to palpation, nontender, No hepatosplenomegaly present and no masses Auscultation: normal bowel sounds Back/Spine/Pelvis Thoracic/Lumbar Spine: thoracic and lumbar spine normal to inspection Skin General skin exam: no rashes or lesions noted Neuro General: patient oriented x3 and no focal motor deficits Cranial nerves: Yes CN's II-XII intact bilaterally Extrem General: Yes normal to inspection, Yes no clubbing, cyanosis or edema and Yes no calf tenderness Psych Speech and movement: Normal speech and movement present Results Reviewed Results Reviewed: COMPLIANCE REPORT FOR THE LAST 30 NIGHTS IS REVIEWED, HE HAS USED 27/30 NIGHTS, 90% AVERAGE USE PER NIGHT 7 HOURS 2 MINUTES. PRESSURE USED MOSTLY 10-11 CM. THERE IS NO SIGNIFICANT AIR LEAK AND RESIDUAL AHI ONLY 1.2 Assessment & Plan Assessment & Plan (1) Obesity (BMI 30-39.9): Comment: PATIENT IS MODERATELY OVERWEIGHT, HE IS ALREADY TRYING TO REDUCE HIS WEIGHT, HE UNDERSTANDS ABOUT HIS DIET AND ALSO IMPORTANCE OF DAILY EXERCISE SUCH WALKING A FEW MILES PER DAY. Code(s): E66.9 - Obesity, unspecified Plan: ABOVE (2) RADHA (obstructive sleep apnea): Comment: CONFIRMED BY HOME SLEEP STUDY THAT HE HAS RATHER SEVERE OBSTRUCTIVE SLEEP APNEA. HE IS USING HIS CPAP VERY REGULARLY. NASAL MASK, AUTO PAP MODE, PRESSURE SETTING 6-20 CM. HAS GOOD COMPLIANCE . RESIDUAL AHI ONLY 1.2. HE IS SLEEPING MUCH BETTER. Code(s): G47.33 - Obstructive sleep apnea (adult) (pediatric) Plan: COMMENDED FOR GOOD COMPLIANCE AND ADVISED TO CONTINUE USING CPAP REGULARLY EVERY NIGHT. (3) Nocturnal hypoxemia: Comment: RESOLVED WITH USE OF CPAP Code(s): G47.34 - Idiopathic sleep related nonobstructive alveolar hypoventilation Plan: NO FURTHER ACTION NEEDED Coding Level of Care Code Est Pt Level 3 (52495) Diagnoses Obesity (BMI 30-39.9) E66.9 RADHA (obstructive sleep apnea) G47.33 Nocturnal hypoxemia G47.34
== END 2023-09-07 14:03 | disposition home or self-care (01) ==
PROVIDERS: PCP Internal Medicine; Visit Provider Internal Medicine
DX: E66.9 Obesity, unspecified (principal); G47.33 Obstructive sleep apnea (adult) (pediatric); G47.34 Idiopathic sleep related nonobstructive alveolar hypoventilation
CPT/HCPCS: 99213

== ENCOUNTER → 2023-09-07 13:31 | Outpatient (BNVA) | payer MEDICARE, SELFPAY | PROVIDERS: PCP Internal Medicine; Visit Provider Internal Medicine | DX: E66.9 Obesity, unspecified (principal); Z68.30 Body mass index [BMI] 30.0-30.9, adult; G47.33 Obstructive sleep apnea (adult) (pediatric); G47.34 Idiopathic sleep related nonobstructive alveolar hypoventilation | CPT/HCPCS: 99212 ==

== ENCOUNTER 2023-11-22 09:46 | Outpatient (REF) | payer MEDICARE, SELFPAY ==
[2023-11-22 13:41] LABS: MANUAL DIFF FLAG NO
[2023-11-22 13:51] LABS: Basophils Absolute Auto 0.1 X10*3/uL (0.0-0.2); Basophils Percent Auto 0.7 % (0-2); Eosinophils Absolute Auto 0.1 X10*3/uL (0.0-0.4); Eosinophils Percent Auto 1.9 % (0-4); Hematocrit 40.9 % (42.0-52.0); Hemoglobin 14.1 g/dl (14.0-18.0); Imm Gran Abs Auto 0.03 X10*3/uL (0.00-0.03); Imm Gran Pct Auto 0.4 % (0.0-0.4); Lymphocytes Absolute Auto 1.9 X10*3/uL (1.2-4.9); Lymphocytes Percent Auto 28.2 % (20-40); Mean Corpuscular HGB Conc 34.5 g/dl (31.0-36.0); Mean Corpuscular Hemoglobin 31.8 pg (27.0-33.0); Mean Corpuscular Volume 92.3 fL (80.0-98.0); Mean Platelet Volume 9.7 fL (9.4-12.4); Monocytes Absolute Auto 0.5 X10*3/uL (0.1-1.2); Monocytes Percent Auto 7.3 % (2-11); Neutrophils Absolute Auto 4.1 x10*3/uL (2.0-8.3); Neutrophils Percent Auto 61.5 % (45-73); Platelet Count 209 X10*3/uL (160-400); Red Blood Count 4.43 X10*6/uL (4.60-5.80); Red Cell Distribution Width 13.2 % (11.0-16.0); White Blood Count 6.7 X10*3/uL (4.8-10.8)
[2023-11-22 14:05] LABS: Alanine Aminotransferase 24 U/L (0-40); Albumin Level 4.3 g/dL (3.5-5.0); Alkaline Phosphatase 77 U/L (39-117); Anion Gap 12 (12-20); Aspartate Amino Transferase 22 U/L (5-37); Bilirubin Total 0.5 mg/dL (0.0-1.0); Blood Urea Nitrogen 23 mg/dL (9-16); Calcium 9.1 mg/dL (8.4-10.2); Carbon Dioxide 24 mmol/L (22-29); Chloride 110 mmol/L (96-108); Cholesterol 153 mg/dL (<200); Estimated Glomerular Filt Rate > 60; Glucose Fasting 106 mg/dL (60-99); HDL Cholesterol 46 mg/dL (>40); LDL Cholesterol Calculated 95 mg/dL (<100); Potassium 4.1 mmol/L (3.3-5.1); Sodium 142 mmol/L (135-145); Total Protein 7.2 g/dL (6.5-8.0); Triglycerides 61 mg/dL (<150)
[2023-11-22 14:23] LABS: Thyroid Stimulating Hormone 1.33 uIU/mL (0.32-4.0)
== END 2023-11-22 09:47 | disposition home or self-care (01) ==
LOC: HO.HMGCLDS 09:46
PROVIDERS: PCP Internal Medicine; Visit Provider Internal Medicine
DX: I10 Essential (primary) hypertension (principal); G62.9 Polyneuropathy, unspecified; H47.011 Ischemic optic neuropathy, right eye; N52.9 Male erectile dysfunction, unspecified; F51.01 Primary insomnia
CPT/HCPCS: 36415; 80053; 80061; 84443; 85025

== ENCOUNTER 2023-12-09 06:36 | Outpatient (REF) | payer MEDICARE, SELFPAY ==
--- NOTE | ~2023-12-09 | XR_ITS ---
EXAMINATION: XR KNEE, RIGHT CLINICAL INFORMATION: Pain in right knee. COMPARISON: None available. TECHNIQUE: Three views of the right knee. FINDINGS: Mild narrowing of the medial compartment. Small joint effusion. Tiny tricompartmental osteophytes. Faint linear calcification along the lateral aspect of the medial tibial plateau may represent a loose body versus prominent cortical surface or other calcification related to overlapping structures. XR/XR knee RT 3V IMPRESSION: Mild degenerative changes.
== END 2023-12-09 06:37 | disposition home or self-care (01) ==
LOC: HO.HOSX 06:36
PROVIDERS: Visit Provider Orthopaedic Surgery
DX: M25.561 Pain in right knee (principal)
CPT/HCPCS: 20610; 73562; 99202; J1010

== ENCOUNTER 2023-12-09 07:59 | Outpatient (AMB) | payer MEDICARE, SELFPAY ==
[2023-12-09 08:05] VITALS: BMI 30.4
--- NOTE | 2023-12-09 08:05 | MHC.OFFVIS ---
Vital Signs 12/09/23 08:05 Height 5 ft 10 in Weight 212 lb BMI 30.4 Intake Visit Reasons: New Pt - right knee pain/ interested in injection Intake Note: Hector is a 73 year old male who presents as a new patient with Right knee pain. Patient reports his pain has been going on for about 2 weeks and is a 3-5 on the 1-10 pain scale. He states he is using ibuprophen, tylenol, and heat with no relief. He denies injury,injections and surgery. He states that he injured his right knee approximately 40 years ago while hiking in [facility]. Most of the pain is along the medial aspect of his knee. Allergies mold Allergy (Verified 12/09/23 08:16) Unknown ragweed pollen Allergy (Verified 12/09/23 08:16) Unknown Medication List - Last Reconciled 12/09/[address] MD multivitamin (Daily Multi-Vitamin tablet) 1 tab PO DAILY nifedipine ER 30 mg PO DAILY tamsulosin 0.4 mg PO DAILY trazodone 50 mg PO BEDTIME PRN PFSH Medical History Nocturnal hypoxemia RADHA (obstructive sleep apnea) Obesity (BMI 30-39.9) BPH (benign prostatic hyperplasia) HTN (hypertension) Gastritis Tubular adenoma Surgical History H/O colonoscopy Social History (Updated 12/09/23 @ 08:19 by Heather Moreno CMA) Patient Tobacco Use Status: Never used Tobacco Current occupational status: retired Current occupation: Left hand dominant Physical Exam Vital Signs: BMI result Body Mass Index 30.4 Const Other: Well-nourished well-developed very friendly male awake alert and oriented x3 in no acute distress Extrem Other: Bilateral lower extremity examination shows good capillary refill, no skin lesions noted, normal sensation light touch Right knee examination shows a minimal effusion, minimal crepitus with range of motion, tenderness along his medial joint line, positive Collin's test, no instability Office Procedures Joint Injection/Drain Joint Injection/Drain Primary Site: right knee Prep: site was prepped using aseptic technique Injected: 40 mg of and DepoMedrol Procedure: The patient tolerated the procedure well Coding 28403 - Large joint Procedure code (CPT) selection complete Results Reviewed Results Reviewed: X-rays of the patient's right knee show mild joint space narrowing, no acute bony abnormalities Assessment & Plan Assessment & Plan (1) Right knee pain: Code(s): M25.561 - Pain in right knee Category: Medical Plan Mr. Villa presents with right knee pain and mechanical symptoms due to early degenerative joint disease as well as possible tearing of his medial meniscus. I had a lengthy discussion with the patient regarding the treatment options. The risks and benefits of a right knee cortisone injection were discussed at length with the patient. The patient wished to proceed. He tolerated the injection well. He will continue with his activity modifications. He will contact me prior to his follow-up appointment in 3 months should any questions or concerns arise. Feel free to call me at any time should questions regarding his orthopedic management arise. I spent 20 minutes in reviewing the patient's records and imaging studies, seeing the patient and documenting in the medical record. Orders: Orders AMB Joint Injection/Aspiration Today M25.561 - Pain in right knee XR knee RT 3V Today M25.561 - Pain in right knee Coding Level of Care Code New Pt Level 2 (62002) Diagnoses Right knee pain M25.561 CPT Codes Coding - 72249 Large joint: 08522 - Large joint ([id number])
== END 2023-12-09 08:30 | disposition home or self-care (01) ==
PROVIDERS: PCP Internal Medicine; Visit Provider Orthopaedic Surgery
DX: M25.561 Pain in right knee (principal)
CPT/HCPCS: 20610; 99203

== ENCOUNTER 2024-01-12 10:10 | Outpatient (AMB) | payer MEDICARE, SELFPAY ==
--- NOTE | 2024-01-12 10:18 | MHC.OFFVIS ---
Vital Signs 01/12/24 10:19 Weight 212 lb BP 126/76 Blood Pressure Location Rt brachial Position Sitting Pulse 76 Intake Visit Reasons: Had appendectomy in [place], Sut Rem Intake Note: Patient scheduled today for suture removal after getting emergency appendectomy in [facility]. Reports he is positive for COVID. Fitness And Wellness Coordinator Required: No Accompanied by: Self / Same As Patient Allergies mold Allergy (Verified 01/12/24 10:20) Unknown ragweed pollen Allergy (Verified 01/12/24 10:20) Unknown HPI Comments Details: Patient is status post a laparoscopic appendectomy and [facility] approximately week and a half ago. Presents here for follow-up. He is otherwise doing well. Tolerating a regular diet. Having regular bowel habits. He has no incisional discomfort or issues. HeIs increasing his activity level. [facility] Medical History Nocturnal hypoxemia RADHA (obstructive sleep apnea) Obesity (BMI 30-39.9) BPH (benign prostatic hyperplasia) HTN (hypertension) Gastritis Tubular adenoma Surgical History H/O colonoscopy Social History Patient Tobacco Use Status: Never used Tobacco Current occupational status: retired Current occupation: Left hand dominant Physical Exam Vital Signs: Last Vital Signs Pulse 76 01/12/24 10:19 BP 126/76 01/12/24 10:19 GI Other: Abdomen is soft. Laparoscopic wound sites clean dry and intact healing by 1st intention. Patient had subcuticular closure and no sutures to be removed Assessment & Plan Assessment & Plan (1) Status post laparoscopic appendectomy: Code(s): Z90.49 - Acquired absence of other specified parts of digestive tract Category: Medical Plan Patient has been given local instructions including avoiding strenuous activities for next few weeks time and will otherwise follow-up p.r.n.. All questions answered. Coding Level of Care Code New Pt Level 4 (98431) Diagnoses Status post laparoscopic appendectomy Z90.49
[2024-01-12 10:19] VITALS: BP 126/76; PULSE 76
== END 2024-01-12 10:31 | disposition home or self-care (01) ==
PROVIDERS: PCP Internal Medicine; Visit Provider Surgery
DX: Z48.02 Encounter for removal of sutures (principal); Z90.49 Acquired absence of other specified parts of digestive tract
CPT/HCPCS: 99202

== ENCOUNTER → 2024-01-12 10:10 | Outpatient (BNVA) | payer MEDICARE, SELFPAY | PROVIDERS: PCP Internal Medicine; Visit Provider Surgery | DX: Z48.02 Encounter for removal of sutures (principal); U07.1 COVID-19; Z90.49 Acquired absence of other specified parts of digestive tract | CPT/HCPCS: 99202 ==

== ENCOUNTER 2024-02-16 10:36 | Outpatient (AMB) | payer MEDICARE, SELFPAY ==
[2024-02-16 10:39] VITALS: BP 120/72; PULSE 72; BMI 30.4
--- NOTE | 2024-02-16 10:39 | MHC.OFFVIS ---
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 Intake Note: New patient dx chest tightness hx aortic root dilation c/o some chest tightness had emergency appendectomy in [facility] and then covid Pilot Captain Required: No Allergies mold Allergy (Verified 01/12/24 10:20) Unknown ragweed pollen Allergy (Verified 01/12/24 10:20) Unknown Medication List - Last Reconciled 02/16/24 by Suman Yen MD multivitamin (Daily Multi-Vitamin tablet) 1 tab PO DAILY nifedipine ER 30 mg PO DAILY tamsulosin 0.4 mg PO DAILY HPI Comments Details: Thank you for referring bread in cardiology consultation today for management of his thoracic aortic enlargement which was diagnose about 2 and half to 3 years ago while he was still a [facility] after about of sudden-onset chest tightness. At that time he had presented to the emergency room and was observed overnight and undergone a stress test and further workup at which time he was diagnose with this condition. He was told he had no significant obstructive coronary artery disease. He is longstanding history of hypertension as well as obstructive sleep apnea currently using CPAP therapy. Patient says over the last couple months he has become very sedentary after his acute bout of appendicitis while visiting [place] very had to have surgery. He subsequently also had COVID and since then he has not been participate in any regular form of exercise. 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 He felt that he would pass out we did not sit down. Symptoms lasted for couple of minutes and then subsided. He has not had any recurrent symptoms since then. He has never had any significant heart failure symptoms. Denies any prolonged palpitation irregular heartbeat. Is concerned about resuming exercise regimen and therefore wanted to do it under Cardiology guidance. [facility] Medical History Nocturnal hypoxemia RADHA (obstructive sleep apnea) Obesity (BMI 30-39.9) BPH (benign prostatic hyperplasia) HTN (hypertension) Gastritis Tubular adenoma Surgical History H/O colonoscopy Social History Patient Tobacco Use Status: Never used Tobacco Current occupational status: retired Current occupation: Left hand dominant Review of Systems Const Denies chills, Denies daytime sleepiness, Denies fatigue, Denies fever(s), Denies frequent falls, Denies poor appetite, Denies snoring, Denies stops breathing during sleep, Denies weakness, Denies weight gain and Denies weight loss Eyes Denies loss of vision ENT Denies dizziness and Denies hearing loss Card Reports chest pain, Denies claudication, Denies leg edema, Reports lightheadedness, Denies palpitations, Denies dyspnea, Reports dyspnea on exertion and Denies orthopnea Resp Denies cough, Denies excessive phlegm production, Denies dyspnea, Reports dyspnea on exertion, Denies snoring and Denies wheezing GI Denies abdominal pain, Denies hematochezia, Denies change in bowel habits, Denies nausea and Denies vomiting Denies dysuria and Denies urinary frequency Musc Denies arthralgias, Denies muscle weakness, Denies numbness and Denies other (frequent falls) Skin/Breast Denies nail changes and Denies rash Neuro Denies Abnormal speech present, Denies dizziness, Denies frequent falls, Denies loss of vision, Denies memory loss, Denies numbness and Denies weakness Psych Denies depression and Denies memory loss Endo Denies fatigue and Denies palpitations Anuj/Lymph Reports easy bruising and Reports other (anemia) Aller/Immun Denies wheezing Physical Exam Vital Signs: Last Vital Signs Pulse 72 02/16/24 10:39 BP 120/72 02/16/24 10:39 BMI result Body Mass Index 30.4 Const General: cooperative, comfortable, no acute distress, alert, awake and Physically active Nutritional Appearance: obese Orientation/consciousness: patient oriented x3 Limitations: no limitations HEENT Head: Yes normocephalic and Yes atraumatic Neck Neck: Yes trachea midline, Yes supple and Yes no JVD Carotids: no bruits Resp Effort & Inspection: normal respiratory effort Auscultation: clear to auscultation bilaterally Cardio Jugular venous distension: no JVD Palpation: normal PMI Rate: regular rate Rhythm: regular rhythm Heart sounds: S1 normal heart sound present, S2 normal heart sound present, no click, no gallops, no murmurs and no rubs GI Auscultation: normal bowel sounds Skin General skin exam: no rashes or lesions noted Neuro General: patient oriented x3 and no focal motor deficits Speech: No Abnormal speech present Extrem General: Yes no clubbing, cyanosis or edema Psych Appearance: grossly normal Office Procedures EKG Details: EKG shows normal sinus rhythm with first-degree AV block 63217-[id number], Complete Assessment & Plan Assessment & Plan (1) Chest tightness: Code(s): R07.89 - Other chest pain Plan: Patient currently not having any significant exertional symptoms but has limited his activity level since his illness in December. He did complain of chest constriction and lightheadedness with activity couple of episodes prior to this acute illness in the past. He also has exertional shortness of breath prior to that. Given his risk factors would suggest exercise treadmill stress test to assess exercise capacity as well as to assess for myocardial ischemia given his risk factors of hypertension. Further treatment based on the findings of the stress test. (2) Enlarged thoracic aorta: Code(s): I77.89 - Other specified disorders of arteries and arterioles Category: Medical Plan: Enlarged thoracic aorta in this elderly gentleman diagnose few years ago. No follow-up since then. Discussed about pathophysiology of ascending aortic aneurysm and hypertension competence cause. He does not have any genetic predisposition for acute aortic syndrome. Follow-up echocardiogram near future. If it does show enlargement of his ascending aorta will probably follow-up on annual basis to see with remained stable. No surgical intervention required till he has size of 5.5 cm as surgical intervention outweighs the risk of acute aortic syndrome at current size. Continue treat hypertension aggressively. Avoidance of sudden strenuous isometric exercise to be pursued. (3) HTN (hypertension): Code(s): I10 - Essential (primary) hypertension Category: Medical Plan: Hypertension which is currently well optimized advised to continue current therapy with nifedipine. Advised to monitor blood pressure intermittently at home and maintain a log. Low-salt diet was discussed. Will follow up in the clinic in 6 weeks time, sooner p.r.n.. Thank you for allowing me to partake in his care Orders: Orders CA echo transthoracic complete Today I77.89 - Other specified disorders of arteries and arterioles CA stress test Today R07.89 - Other chest pain Coding Level of Care Code New Pt Level 4 (52118) Diagnoses Chest tightness R07.89 Enlarged thoracic aorta I77.89 HTN (hypertension) I10 CPT Codes EKG - CPT: 84776-[id number], Complete ([id number])
== END 2024-02-16 11:25 | disposition home or self-care (01) ==
PROVIDERS: PCP Internal Medicine; Visit Provider Internal Medicine Cardiovascular Disease
DX: R07.89 Other chest pain (principal); I77.89 Other specified disorders of arteries and arterioles; I10 Essential (primary) hypertension
CPT/HCPCS: 93010; 99204

== ENCOUNTER → 2024-02-16 10:36 | Outpatient (BNVA) | payer MEDICARE, SELFPAY | PROVIDERS: PCP Internal Medicine; Visit Provider Internal Medicine Cardiovascular Disease | DX: R07.89 Other chest pain (principal); I77.89 Other specified disorders of arteries and arterioles; I10 Essential (primary) hypertension | CPT/HCPCS: 93005; 99202 ==

== ENCOUNTER 2024-02-24 08:05 | Outpatient (REF) | payer MEDICARE, SELFPAY ==
[2024-02-24 10:32] LABS: Appearance Urine Clear; Color Urine Yellow; Glucose Urine UA Negative (Negative); Leukocyte Esterase Urine Negative (Negative); Nitrite Urine Negative (Negative); PH 5.5 (5.0-9.0); Specific Gravity - Urine 1.025 (1.005-1.025); Urine Blood Negative (Negative); Urine Ketones Negative (Negative); Urine Protein Negative (Neg-Trace)
[2024-02-24 10:39] LABS: Bacteria Urine None Seen (None Seen); Hyaline Casts Urine 0-2 /LPF (0-2); RBC Urine 0-2 /HPF (0-2); Squamous Epithelial Cell Urine 0-2 /HPF (0-2); WBC Urine 0-5 /HPF (0-5)
[2024-02-28 10:49] LABS: Free Prostate Spec Ag 0.6 ng/mL; Percent Free Prostate Spec Ag 13 % (calc) (>25); Prostate Specific Ag Total 4.5 ng/mL (< OR = 4.0)
== END 2024-02-24 08:06 | disposition home or self-care (01) ==
LOC: HO.HMGCLDS 08:05
PROVIDERS: PCP Internal Medicine; Visit Provider Internal Medicine
DX: R35.0 Frequency of micturition (principal); Z12.5 Encounter for screening for malignant neoplasm of prostate
CPT/HCPCS: 36415; 81001; 84153; 84154

== ENCOUNTER 2024-03-14 07:49 | Outpatient (AMB) | payer MEDICARE, SELFPAY ==
[2024-03-14 07:53] VITALS: BMI 30.3
--- NOTE | 2024-03-14 07:53 | MHC.OFFVIS ---
Vital Signs 03/14/24 07:53 Height 5 ft 10 in Weight 211 lb BMI 30.3 Intake Visit Reasons: Right knee pain Intake Note: Hector is a 73 year old male who presents with complaints of right knee pain. The patient did have a cortisone injection given into his right knee earlier this year. He states he got fairly good relief from that injection. His pain has returned. He has done physical therapy exercises which aggravated his pain. He has also tried Tylenol and anti-inflammatory medicines which gave him minimal relief. He would like to hold off on surgery for as long as possible. Allergies mold Allergy (Verified 03/14/24 07:58) Unknown ragweed pollen Allergy (Verified 03/14/24 07:58) Unknown Medication List - Last Reconciled 03/14/[address] MD multivitamin (Daily Multi-Vitamin tablet) 1 tab PO DAILY nifedipine ER 30 mg PO DAILY tamsulosin 0.4 mg PO DAILY PFSH Medical History (Updated 03/14/24 @ 08:[address] MD) Nocturnal hypoxemia RADHA (obstructive sleep apnea) Obesity (BMI 30-39.9) BPH (benign prostatic hyperplasia) HTN (hypertension) Gastritis Tubular adenoma Surgical History (Updated 03/14/24 @ 07:59 by Lamar Sal CMA) Hx of appendectomy (12/22/23) H/O colonoscopy Social History Patient Tobacco Use Status: Never used Tobacco Current occupational status: retired Current occupation: Left hand dominant Physical Exam Vital Signs: BMI result Body Mass Index 30.3 Const Other: Well-nourished well-developed very friendly male awake alert and oriented x3 in no acute distress Extrem Other: Bilateral lower extremity examination shows good capillary refill, no skin lesions noted, normal sensation light touch Right knee examination shows a minimal effusion, palpable crepitus with range of motion, pain with range of motion, no instability Office Procedures Joint Injection/Aspiration Joint Injection/Aspiration Primary Site: right knee Prep: site was prepped using aseptic technique Injected: 40 mg of, DepoMedrol and 1% plain lidocaine Procedure: The patient tolerated the procedure well Coding 35540 - Large joint Procedure code (CPT) selection complete Assessment & Plan Assessment & Plan (1) Arthritis of right knee: Code(s): M17.11 - Unilateral primary osteoarthritis, right knee Category: Medical (2) Right knee pain: Code(s): M25.561 - Pain in right knee Category: Medical Plan Mr. Villa presents with right knee pain due to degenerative joint disease. I had a lengthy discussion with the patient regarding the treatment options. The risks and benefits of a right knee cortisone injection were discussed at length with the patient. The patient wished to proceed with the injection. He tolerated the injection well. He will continue with his activity modifications. He will follow up with me on an as-needed basis should his symptoms not plateau at an unacceptable level over the next few months. Feel free to call me at any time should questions regarding his orthopedic management arise. I spent 21 minutes in reviewing the patient's records and imaging studies, seeing the patient and documenting in the medical record. Orders: Orders AMB Joint Injection/Aspiration Today M17.11 - Unilateral primary osteoarthritis, right knee Coding Level of Care Code Est Pt Level 3 (94620) Diagnoses Arthritis of right knee M17.11 Right knee pain M25.561 CPT Codes Coding - 33423 Large joint: 16604 - Large joint ([id number])
== END 2024-03-14 08:19 | disposition home or self-care (01) ==
PROVIDERS: PCP Internal Medicine; Visit Provider Orthopaedic Surgery
DX: M17.11 Unilateral primary osteoarthritis, right knee (principal); M25.561 Pain in right knee
CPT/HCPCS: 20610; 99213

== ENCOUNTER → 2024-03-14 07:49 | Outpatient (BNVA) | payer MEDICARE, SELFPAY | PROVIDERS: PCP Internal Medicine; Visit Provider Orthopaedic Surgery | DX: G47.33 Obstructive sleep apnea (adult) (pediatric) (principal); E66.9 Obesity, unspecified; Z68.30 Body mass index [BMI] 30.0-30.9, adult; M17.11 Unilateral primary osteoarthritis, right knee | CPT/HCPCS: 20610; 99212; J1010 ==

== ENCOUNTER 2024-03-14 09:45 | Outpatient (AMB) | payer MEDICARE, SELFPAY ==
[2024-03-14 09:53] VITALS: BP 110/62; PULSE 60; O2SAT 99; BMI 30.6
--- NOTE | 2024-03-14 09:53 | A.OFFVIS_ITS ---
Vital Signs 03/14/24 09:53 Height 5 ft 10 in Weight 213 lb 0.85 oz BMI 30.6 BP 110/62 Blood Pressure Location Lt brachial Position Sitting Pulse 60 Pulse Source Pulse Oximeter Pulse Oximetry (%) 99 Oxygen Delivery Method Room Air Intake Visit Reasons: Somnolence Intake Note: pt is here for follow up and states he had health issues, on/off since December. now back on it, feeling okay now. He did have covid, fand dealt with fatigue for a while. Hearing Instrument Specialist Required: No Allergies mold Allergy (Verified 03/14/24 10:07) Unknown ragweed pollen Allergy (Verified 03/14/24 10:07) Unknown Medication List - Last Reconciled 03/14/24 by Efren Swann MD multivitamin (Daily Multi-Vitamin tablet) 1 tab PO DAILY nifedipine ER 30 mg PO DAILY tamsulosin 0.4 mg PO DAILY Do you need a note to return to daycare/school/sports/work: No HPI HPI Somnolence: Details: 73 years old very pleasant gentleman who is moderately obese and a known case of obstructive sleep apnea comes for his routine follow-up after 6 months. In the month of December he had ruptured appendicitis treated by laparoscopic appendectomy and also for peritoneal drainage for sometime So he was laid in the hospital and rehab facility for 4-5 weeks when he did not use the CPAP. After that he started using. it regularly again He has no issue with the nasal pillows and use of CPAP. His CPAP device is working fine. 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) ENT Reports no additional complaints Card Denies chest pain, Denies irregular heart rhythm and Denies leg edema Resp Reports as per HPI and Reports no additional complaints GI Reports no additional complaints Reports no additional complaints Musc Reports no additional complaints Skin/Breast Reports system reviewed and no additional complaints, except as documented Neuro Reports no additional complaints Psych Reports no additional complaints Endo Reports no additional complaints Anuj/Lymph Reports no additional complaints Aller/Immun Reports no additional complaints Physical Exam Vital Signs: Last Vital Signs Pulse 60 03/14/24 09:53 BP 110/62 03/14/24 09:53 Pulse Ox 99 03/14/24 09:53 Oxygen Delivery Method Room Air 03/14/24 09:53 BMI result Body Mass Index 30.6 Const General: healthy appearing, comfortable, no acute distress, alert and awake Orientation/consciousness: patient oriented x3 HEENT Head: Yes normal to inspection General nose exam: No nasal polyps present and No nasal discharge present Face and sinus: Yes sinuses nontender Mouth: oropharynx normal Throat: Yes posterior oropharynx normal Eyes General: appearance normal, both eyes and all related structures Neck Neck: Yes normal visual inspection, Yes no lymphadenopathy, Yes trachea midline and Yes no JVD Thyroid: Thyroid normal Chest Chest palpation & inspection: normal inspection of the chest, normal palpation of entire chest wall and no tenderness Resp Effort & Inspection: normal respiratory effort Auscultation: clear to auscultation bilaterally, no crackles and no wheezes Cardio Palpation: normal PMI Rate: regular rate Rhythm: regular rhythm Heart sounds: no gallops and no murmurs Peripheral pulses: Peripheral pulses 2+ throughout GI Palpation (GI): Soft to palpation, nontender, No hepatosplenomegaly present and no masses Auscultation: normal bowel sounds Back/Spine/Pelvis Thoracic/Lumbar Spine: thoracic and lumbar spine normal to inspection Skin General skin exam: no rashes or lesions noted Neuro General: patient oriented x3 and no focal motor deficits Cranial nerves: Yes CN's II-XII intact bilaterally Extrem General: Yes normal to inspection, Yes no clubbing, cyanosis or edema and Yes no calf tenderness Psych Speech and movement: Normal speech and movement present Results Reviewed Results Reviewed: Compliance report for the last 30 nights is reviewed and he has used it 100% of the time average usage per night is 6 hours 6 minutes pressure used mostly 9-10 cm There is no significant air leak Residual AHI 1.0 Assessment & Plan Assessment & Plan (1) Obesity (BMI 30-39.9): Comment: PATIENT IS MODERATELY OVERWEIGHT, HE IS ALREADY TRYING TO REDUCE HIS WEIGHT, HE UNDERSTANDS ABOUT HIS DIET AND ALSO IMPORTANCE OF DAILY EXERCISE SUCH WALKING A FEW MILES PER DAY. Code(s): E66.9 - Obesity, unspecified Category: Medical Plan: Encouraged to start walking daily basis and try to lose about 10 lb of weight. (2) RADHA (obstructive sleep apnea): Comment: CONFIRMED BY HOME SLEEP STUDY THAT HE HAS RATHER SEVERE OBSTRUCTIVE SLEEP APNEA. HE IS USING HIS CPAP VERY REGULARLY. NASAL MASK, AUTO PAP MODE, PRESSURE SETTING 6-20 CM. HAS GOOD COMPLIANCE . RESIDUAL AHI ONLY 1.0 HE IS SLEEPING MUCH BETTER. Code(s): G47.33 - Obstructive sleep apnea (adult) (pediatric) Category: Medical Plan: Commended for good compliance and advised to keep on using the CPAP regularly Coding Level of Care Code Est Pt Level 3 (30646) Diagnoses Obesity (BMI 30-39.9) E66.9 RADHA (obstructive sleep apnea) G47.33
== END 2024-03-14 10:07 | disposition home or self-care (01) ==
PROVIDERS: PCP Internal Medicine; Visit Provider Internal Medicine
DX: G47.33 Obstructive sleep apnea (adult) (pediatric) (principal); E66.9 Obesity, unspecified; Z68.30 Body mass index [BMI] 30.0-30.9, adult
CPT/HCPCS: 99213

== ENCOUNTER → 2024-03-15 07:58 | Outpatient (REF) | payer MEDICARE, SELFPAY ==
--- NOTE | 2024-03-15 08:01 | CA_ITS ---
Acquisition Time: 2024-03-15 08:57:07 Total Exercise Time: 00:07:40 Test Indications: CHEST PAIN Medications: Protocol: CARLOS Max HR: 146 BPM 97% of Pred: 149 BPM Max BP: 166/066 mmHG Max Work Load: 9.5 METS Exercise stress test exercise 7min 40 sec of Carlos protocol achieivng 91% MPHR, with mild SOB, without chest discomfort, with isolated PACs, with normotensive repsponse to exercise, without EKG changes. Test reviewed with Dr. Yen Referred By: Suman Yen Overread By: Becky Dkyes
--- NOTE | 2024-03-15 08:01 | CA_ITS ---
Transthoracic Echocardiogram Patient (Last, First, Middle): Hector Villa, Gender: Male Date of : 1950 Age: 73 Procedure Date: 03/15/2024 Procedure Type: Transthoracic Echocardiogram Location: OP Height: 177.8 cm Weight: 95.26 kg BSA: 2.13 m2 Heart Rate: bpm BP: 110 / 60 mmHg Grade Foreman: CYNTHIA Mcelroy MD: Suman Yen MD Roller Coaster Operator: Suman Yen MD Symptoms: I77.89 - Other specified disorders of arteries and arterioles Study Quality: Fair ECG Rhythm: Sinus Conclusions: - 1. Normal LV ejection fraction 55-60% 2. Normal cardiac valvular Doppler 3. Ascending aorta is not well visualized but in one views measured to be 4.2 cm which is mildly dilated 4. Normal RV systolic pressure 5. No gross pericardial effusion Findings Left Ventricle Normal left ventricular size, thickness, and systolic function. The visually estimated ejection fraction is between 55-60%. Spectral Doppler is indicative of a normal filling pattern. Right Ventricle Normal right ventricular cavity size and systolic function. Atria Both atria are normal in size. There is lipomatous hypertrophy of the interatrial septum. There is no evidence of interatrial shunt. Aortic Valve Normal aortic valve structure and function. There is no aortic valve stenosis. There is no aortic valve regurgitation. Mitral Valve Normal mitral valve structure and function. There is trace mitral valve regurgitation. There is no mitral valve stenosis. Pulmonic Valve The pulmonic valve is likely normal. There is trace pulmonic valve regurgitation. Tricuspid Valve Normal tricuspid valve structure. There is trace tricuspid valve regurgitation. The right ventricular systolic pressure is normal. Normal right atrial pressure. There is no evidence of pulmonary hypertension. Great Vessels The aorta was not well visualized. The pulmonary artery was not well visualized. There is mild dilatation of the ascending aorta measuring 4.20 cm. Venous The inferior vena cava is normal in size and collapses greater than 50% with inspiration. Pericardium/Pleural There is no evidence of pericardial effusion. Prior Study Comparison No prior study available for comparison. Measurements 2D Linear Measurements IVSd: 1.19 0.6-0.9/0.6-1.0 cm LVIDd: 4.54 3.9-5.3/4.2-5.9 cm LVIDd Index: 2.13 2.4-3.2/2.2-3.1 cm/m2 LVIDs: 3.13 2.0-3.6 cm LVPWd: 1.18 0.7-1.1 cm Ao Root: 4.20 2.1-3.5 cm LA Diam: 3.80 2.7-3.8/3.0-4.0 cm LAIDs Index: 1.78 1.5-2.3 cm/m2 LV Mass: 245.82 67-162/88-224 g LV Mass Index: 115.41 43-95/49-115 g/m2 LVOT Diam: 2.30 3.0+(-)1.3 cm 2D Systolic Function EF 4C: 56.70 >55% EF 2C: 58.50 >55% EF BiP: 57.80 >55% Mitral Valve MV Pk E: 0.78 MV PK A: 0.74 MV Decel Time: 255.00 E/A: 1.00 E'Lateral: 7.51 E'Medial: 4.90 E/E' Med: 15.80 E/E' Lat: 10.30 PHT: 75.00 MVA PHT: 2.93 Decel [place]: 3.04 Aortic Valve AoV Pk Cortes: 1.56 AoV Mn Cortes: 1.04 AoV VTI: 0.35 AoV Pk Grad: 10.00 Aov Mn Grad: 5.00 STEPHEN Cont.VTI: 3.42 LVOT LVOT Pk Cortes: 1.39 LVOT Mn Cortes: 0.93 LVOT VTI: 0.29 LVOT Pk Grad: 8.00 LVOT Mn Grad: 4.00 LVOT Diam: 2.30 LVOT Area: 4.15 Diastolic Function MV Pk E: 0.78 MV Pk A: 0.74 E/A: 1.00 E'Medial: 4.90 E/E' Med: 15.80 E' Laterial: 7.51 E/E' Lat: 10.30 Right Ventricle TAPSE (mm): 18.00 TVS' Cortes: 11.30 Tricuspid Valve TR Pk Cortes: 2.33 TR Pk Grad: 22.00 RA Press: 3.00 RVSP: 25.00 Great Vessels Aorta Ao Root-2D: 4.20 2.0-3.7 cm Ao Asc: 4.20 2.1-3.4 cm Ao Arch: 3.10 Updated in Other Vendor System with Status of Final Suman Yen MD electronically signed on 03/15/2024 3:48:32 PM with status of Final
== END ==
LOC: HO.CARD 07:58
PROVIDERS: PCP Internal Medicine; Visit Provider Internal Medicine Cardiovascular Disease
DX: R07.89 Other chest pain (principal); I77.89 Other specified disorders of arteries and arterioles
CPT/HCPCS: 93017; 93306

== ENCOUNTER → 2024-03-15 08:01 | Outpatient (BNV) | payer MEDICARE, SELFPAY | PROVIDERS: PCP Internal Medicine; Visit Provider Internal Medicine Cardiovascular Disease | DX: I42.2 Other hypertrophic cardiomyopathy (principal); I49.1 Atrial premature depolarization | CPT/HCPCS: 93016; 93018; 93320; 93325; 93350 ==

== ENCOUNTER 2024-03-27 12:27 | Outpatient (AMB) | payer MEDICARE, SELFPAY ==
--- NOTE | 2024-03-27 12:30 | A.OFFVIS_ITS ---
Vital Signs 03/27/24 12:34 03/27/24 12:49 Height 5 ft 10 in Weight 209 lb 14.081 oz BMI 30.1 BP 140/82 H 122/78 Blood Pressure Location Lt brachial Lt brachial Position Sitting Sitting Pulse 61 Pulse Source Pulse Oximeter Intake Visit Reasons: 6 wk f/up echo/ ett Intake Note: 6 wk f/up echo/ett Antenna Installer Required: No Accompanied by: Self / Same As Patient Allergies mold Allergy (Verified 03/14/24 10:07) Unknown ragweed pollen Allergy (Verified 03/14/24 10:07) Unknown Medication List - Last Reconciled 03/27/24 by Suman Yen MD multivitamin (Daily Multi-Vitamin tablet) 1 tab PO DAILY nifedipine ER 30 mg PO DAILY tamsulosin 0.4 mg PO DAILY HPI Comments Details: Hector comes for follow-up. Recently underwent a stress test which was negative high workload for ischemia. He has no new symptoms. He is gradually building his exercise capacity and feels better. Echocardiogram shows normal LV ejection fraction with mildly enlarged thoracic aorta at 4.2 cm. He does not measure blood pressure at home but says usually within normal limits. Uses CPAP. Denies any heart failure symptoms. No prolonged palpitations. [facility] Medical History Nocturnal hypoxemia RADHA (obstructive sleep apnea) Obesity (BMI 30-39.9) BPH (benign prostatic hyperplasia) HTN (hypertension) Gastritis Tubular adenoma Surgical History Hx of appendectomy (12/22/23) H/O colonoscopy Social History Patient Tobacco Use Status: Never used Tobacco Current occupational status: retired Current occupation: Left hand dominant Review of Systems Const Denies chills, Denies fatigue, Denies fever(s), Denies frequent falls, Denies weakness, Denies weight gain and Denies weight loss ENT Denies dizziness Card Denies chest pain, Denies leg edema, Denies lightheadedness, Denies palpitations, Denies dyspnea and Denies dyspnea on exertion Resp Denies cough, Denies dyspnea and Denies dyspnea on exertion GI Denies hematochezia Musc Denies abnormal gait, Denies muscle weakness, Denies numbness, Denies radiating pain into limb and Denies tingling Neuro Denies Abnormal speech present, Denies abnormal gait, Denies dizziness, Denies frequent falls, Denies numbness, Denies tingling and Denies weakness Endo Denies fatigue and Denies palpitations Physical Exam Vital Signs: Last Vital Signs Pulse 61 03/27/24 12:34 BP 140/82 H 03/27/24 12:34 BMI result Body Mass Index 30.1 Const General: cooperative, comfortable, no acute distress, alert, awake and Physically active Nutritional Appearance: obese Orientation/consciousness: patient oriented x3 Limitations: no limitations Neck Neck: Yes trachea midline, Yes supple and Yes no JVD Carotids: no bruits Resp Effort & Inspection: normal respiratory effort Auscultation: clear to auscultation bilaterally Cardio Jugular venous distension: no JVD Palpation: normal PMI Rate: regular rate Rhythm: regular rhythm Heart sounds: S1 normal heart sound present, S2 normal heart sound present, no click, no gallops, no murmurs and no rubs GI Auscultation: normal bowel sounds Neuro General: patient oriented x3 and no focal motor deficits Speech: No Abnormal speech present Extrem General: Yes no clubbing, cyanosis or edema Assessment & Plan Assessment & Plan (1) Enlarged thoracic aorta: Code(s): I77.89 - Other specified disorders of arteries and arterioles Category: Medical Plan: 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 No surgical interventions required. Will continue monitor by echocardiogram on annual basis. This was discussed management include aggressive control blood pressure, see below. Avoidance of sudden strenuous isometric exercise was discussed. Continue participate in physical activity as tolerated. (2) HTN (hypertension): Code(s): I10 - Essential (primary) hypertension Category: Medical Plan: Hypertension currently well optimized. Repeat blood pressure management within normal limits. Advised to monitor blood pressure intermittently at home maintain a log. Goal blood pressure less than 130/84. Low-salt diet was discussed. Maintain activity level. Continue CPAP therapy. His recent stress test was within normal limits and no further physiologic testing is needed. Can pursue further evaluation for coronary atherosclerosis with coronary calcium score. He is agreeable. Will follow up in the clinic in 1 year's time, sooner p.r.n.. Thank you for allowing me to partake in his care Orders: Orders CT Coronary Calcium Score 1 Week I10 - Essential (primary) hypertension CA echo transthoracic complete 1 Year I77.89 - Other specified disorders of arteries and arterioles Coding Level of Care Code Est Pt Level 4 (31563) Diagnoses Enlarged thoracic aorta I77.89 HTN (hypertension) I10
[2024-03-27 12:34] VITALS: BP 140/82; PULSE 61; BMI 30.1
[2024-03-27 12:49] VITALS: BP 122/78
== END 2024-03-27 12:50 | disposition home or self-care (01) ==
PROVIDERS: PCP Internal Medicine; Visit Provider Internal Medicine Cardiovascular Disease
DX: I77.89 Other specified disorders of arteries and arterioles (principal); I10 Essential (primary) hypertension
CPT/HCPCS: 99214

== ENCOUNTER → 2024-03-27 12:27 | Outpatient (BNVA) | payer MEDICARE, SELFPAY | PROVIDERS: PCP Internal Medicine; Visit Provider Internal Medicine Cardiovascular Disease | DX: I77.89 Other specified disorders of arteries and arterioles (principal); I10 Essential (primary) hypertension; Z99.89 Dependence on other enabling machines and devices | CPT/HCPCS: 99212 ==

== ENCOUNTER 2024-06-14 07:52 | Outpatient (AMB) | payer MEDICARE, SELFPAY ==
--- NOTE | 2024-06-14 07:57 | MHC.OFFVIS ---
Intake Visit Reasons: Right knee pain Intake Note: Hector is a 73 year old male who presents with complaints of progressively worsening bilateral knee pains, right greater than left. He describes his right knee pain as sharp in nature. He has had injections in the past which gave him fairly good relief. He wishes to hold off on surgery for as long as possible. He has done physical therapy exercises which aggravated his pain. He has also tried Tylenol and anti-inflammatory medicines which gave him minimal relief. Allergies mold Allergy (Verified 06/14/24 08:03) Unknown ragweed pollen Allergy (Verified 06/14/24 08:03) Unknown Medication List - Last Reconciled 06/14/[address] MD multivitamin (Daily Multi-Vitamin tablet) 1 tab PO DAILY nifedipine ER 30 mg PO DAILY tamsulosin 0.4 mg PO DAILY PFSH Medical History Nocturnal hypoxemia RADHA (obstructive sleep apnea) Obesity (BMI 30-39.9) BPH (benign prostatic hyperplasia) HTN (hypertension) Gastritis Tubular adenoma Surgical History Hx of appendectomy (12/22/23) H/O colonoscopy Social History Patient Tobacco Use Status: Never used Tobacco Current occupational status: retired Current occupation: Left hand dominant Physical Exam Const Other: Well-nourished well-developed very friendly male awake alert and oriented x3 in no acute distress Extrem Other: Bilateral lower extremity examination shows good capillary refill, no skin lesions noted, normal sensation light touch Right knee examination shows a minimal effusion, palpable crepitus with range of motion, pain with range motion, range of motion from -3 degrees to 115 degrees, no instability Office Procedures AMB Joint Injection/Aspiration Joint Injection/Aspiration Primary Site: right knee Prep: site was prepped using aseptic technique Injected: 40 mg of, DepoMedrol and 1% plain lidocaine Procedure: The patient tolerated the procedure well Coding 45792 - Large joint Procedure code (CPT) selection complete Results Reviewed Results Reviewed: X-rays of the patient's right knee taken previously show joint space narrowing, subchondral sclerosis, no acute bony abnormalities Assessment & Plan Assessment & Plan (1) Arthritis of right knee: Code(s): M17.11 - Unilateral primary osteoarthritis, right knee Category: Medical (2) Right knee pain: Code(s): M25.561 - Pain in right knee Category: Medical Plan Mr. Villa presents with right knee pain due to degenerative joint disease. I had a lengthy discussion with the patient regarding the treatment options. The risks and benefits of a right knee cortisone injection were discussed length with the patient. The patient wished to proceed. He tolerated the injection well. He will continue with his home exercise program. I will see him back in 4-6 weeks' time for re-evaluation of his left knee pain. Feel free to call me at any time should questions regarding his orthopedic management arise. I spent 22 minutes in reviewing the patient's records and imaging studies, seeing the patient and documenting in the medical record. Orders: Orders AMB Joint Injection/Aspiration 06/14/24 M17.11 - Unilateral primary osteoarthritis, right knee Coding Level of Care Code Est Pt Level 3 (52455) Complex EM visit Add On G2211 Diagnoses Arthritis of right knee M17.11 Right knee pain M25.561 CPT Codes Coding - 69660 Large joint: 25602 - Large joint ([id number])
== END 2024-06-14 08:12 | disposition home or self-care (01) ==
LOC: HO.HOS 07:52
PROVIDERS: PCP Internal Medicine; Visit Provider Orthopaedic Surgery
DX: M17.11 Unilateral primary osteoarthritis, right knee (principal)
CPT/HCPCS: 20610; 99213

== ENCOUNTER → 2024-06-14 07:52 | Outpatient (BNVA) | payer MEDICARE, SELFPAY | PROVIDERS: PCP Internal Medicine; Visit Provider Orthopaedic Surgery | DX: M17.11 Unilateral primary osteoarthritis, right knee (principal); M25.562 Pain in left knee | CPT/HCPCS: 20610; 99212; J1010; J2003 ==

== ENCOUNTER 2024-08-01 07:49 | Outpatient (AMB) | payer MEDICARE, SELFPAY ==
--- NOTE | 2024-08-01 07:50 | MHC.OFFVIS ---
Vital Signs 08/01/24 07:50 Height 5 ft 10 in Weight 209 lb BMI 30.0 Intake Visit Reasons: Left knee discomfort Intake Note: Hector is a 73 year old male who presents with complaints of intermittent discomfort in his left knee. At his last visit he had a cortisone injection given into his right knee. He reports mild discomfort in both of his knees. The patient states that he has been exercising as much as possible. He denies any locking or giving way. Allergies mold Allergy (Verified 08/01/24 07:58) Unknown ragweed pollen Allergy (Verified 08/01/24 07:58) Unknown Medication List - Last Reconciled 08/01/[address] MD multivitamin (Daily Multi-Vitamin tablet) 1 tab PO DAILY nifedipine ER 30 mg PO DAILY tamsulosin 0.4 mg PO DAILY PFSH Medical History Nocturnal hypoxemia RADHA (obstructive sleep apnea) Obesity (BMI 30-39.9) BPH (benign prostatic hyperplasia) HTN (hypertension) Gastritis Tubular adenoma Surgical History Hx of appendectomy (12/22/23) H/O colonoscopy Social History Patient Tobacco Use Status: Never used Tobacco Current occupational status: retired Current occupation: Left hand dominant Physical Exam Vital Signs: BMI result Body Mass Index 30.0 Const Other: Well-nourished well-developed very friendly male awake alert and oriented x3 in no acute distress Extrem Other: Bilateral lower extremity examination shows good capillary refill, no skin lesions noted, normal sensation light touch Left knee examination shows a minimal effusion, mild crepitus with range motion, no instability Assessment & Plan Assessment & Plan (1) Arthritis of left knee: Code(s): M17.12 - Unilateral primary osteoarthritis, left knee Category: Medical Plan Hector presents with intermittent left knee discomfort due to early degenerative joint disease. I had a lengthy discussion with the patient regarding the treatment options. At this point the patient's symptoms are tolerable to him. Will continue with his exercise program. He will follow up with me on an as-needed basis should his symptoms worsen in any way. Feel free to call me at any time should questions regarding his orthopedic management arise. I spent 21 minutes in reviewing the patient's records and imaging studies, seeing the patient and documenting in the medical record. Coding Level of Care Code Est Pt Level 3 (42926) Complex EM visit Add On G2211 Diagnoses Arthritis of left knee M17.12
--- OUTSIDE RECORDS SUMMARY | 2024-08-01 07:51 | XMS_ITS ---
Author Name [facility] Organization Unknown Assessment and Plan ID Update Date Source Alert Text [employer] - [id number] [phone] 11/25/2021 [employer] - [id number] COVID Vaccination: This patient has received the PFR, COV-19,mRNA,LNP-S,PF,30-0. 3,sesar-sucrose vaccination on 11/25/2021 with lot number [id number] at [id number]
== END 2024-08-01 08:04 | disposition home or self-care (01) ==
PROVIDERS: PCP Internal Medicine; Visit Provider Orthopaedic Surgery
DX: M17.12 Unilateral primary osteoarthritis, left knee (principal)
CPT/HCPCS: 99213; G2211

== ENCOUNTER 2024-08-01 15:46 | Outpatient (REF) | payer MEDICARE, SELFPAY | END 2024-08-01 15:47 | disposition home or self-care (01) | LOC: HO.HOSX 15:46 | PROVIDERS: Visit Provider Orthopaedic Surgery | DX: M25.562 Pain in left knee (principal) | CPT/HCPCS: 99212 ==

== ENCOUNTER → 2024-09-14 13:34 | Outpatient (BNVA) | payer MEDICARE, SELFPAY | PROVIDERS: PCP Internal Medicine; Visit Provider Internal Medicine | DX: G47.33 Obstructive sleep apnea (adult) (pediatric) (principal); E66.9 Obesity, unspecified; Z99.89 Dependence on other enabling machines and devices; Z68.32 Body mass index [BMI] 32.0-32.9, adult | CPT/HCPCS: 99212 ==

== ENCOUNTER 2025-02-13 14:43 | Outpatient (AMB) | payer MEDICARE, SELFPAY ==
--- NOTE | 2025-02-13 14:45 | MHC.PC.OV ---
Vital Signs 02/13/25 14:49 Height 5 ft 8.58 in Weight 218 lb BMI 32.6 BP 142/76 H Respiration 14 Pulse 66 Pulse Source Pulse Oximeter Temp 98.1 F Temp Source Temporal Artery Scan Pulse Oximetry (%) 97 Oxygen Delivery Method Room Air Intake Visit Reasons: follow up Wire Hanger Required: No Accompanied by: Self / Same As Patient Allergies mold Allergy (Verified 02/13/25 18:51) Unknown ragweed pollen Allergy (Verified 02/13/25 18:51) Unknown Medication List - Last Reconciled 02/13/25 by Robin Lee MD multivitamin (Daily Multi-Vitamin tablet) 1 tab PO DAILY nifedipine ER 30 mg PO DAILY tamsulosin 0.4 mg PO DAILY trazodone 50 mg PO BEDTIME PRN Tobacco use date assessed: 02/13/25 Fall risk assessment: No Falls in past year Last assessed Fall Risk: 02/13/25 Dental Screening Dental Screen Date: 02/13/25 Did you have a dental visit in the last 12 months?: Yes Did you have a dental problem in the last 6 months where you did not have access to dental care?: No Was dental information given to patient?: Patient has dentist [facility] Medical History (Updated 02/13/25 @ 18:54 by Robin Lee MD) Acute ischemic optic neuropathy Nocturnal hypoxemia RADHA (obstructive sleep apnea) Obesity (BMI 30-39.9) BPH (benign prostatic hyperplasia) HTN (hypertension) Gastritis Tubular adenoma Surgical History Hx of appendectomy (12/22/23) H/O colonoscopy (~01/29/23) Family History Father Alcohol abuse Mother Pancreatic cancer AD (Alzheimer's disease) Thyroid cancer Social History Housing: House Alcohol intake: current Alcohol intake frequency: 0-2 drinks per day Patient Tobacco Use Status: Never used Tobacco service: No Current occupational status: retired Cognitive needs: No Hearing needs: No Vision needs: Yes (reading glasses) Questionnaire PHQ-9 Over the last 2 weeks, how often have you been bothered by any of the following problems? 1. Little interest or pleasure in doing things: not at all 2. Feeling down, depressed, or hopeless: not at all 3. Trouble falling or staying asleep, or sleeping too much: not at all 4. Feeling tired or having little energy: not at all 5. Poor appetite or overeating: not at all 6. Feeling bad about yourself - or that you are a failure or have let yourself or your family down: not at all 7. Trouble concentrating on things, such as reading the newspaper or watching television: not at all 8. Moving or speaking so slowly that other people could have noticed. Or the opposite - being so fidgety or restless that you have been moving around a lot more than usual: not at all 9. Thoughts that you would be better off or of hurting yourself in some way: not at all Total score: 0 Depression Screening Interpretation: Negative Depression Screening Done: Yes Source: Developed by Drs. Carlos Fitzgerald, Mckenzie Edmonds, Dontae Brown and colleagues, with an educational tyshawn from [employer] Thrive Questionnaire Date Thrive assessed: 02/13/25 I am a: Patient What is your living situation today?: I have a steady place to live Within the past 12 months, did the food you bought not last and you didn't have the money to get more?: Never true Within the past 12 months, did you worry whether your food would run out before you got money to buy more?: Never true Do you have trouble paying for medicines?: No Do you have trouble getting transportation to medical appointments?: No Do you have trouble paying your heating and electricity bill?: No Do you have trouble taking care of your child, family member or friend?: No Do you have trouble with day-to-day activities such as bathing, preparing meals, shopping, managing finances, etc.?: No Are you currently unemployed and looking for a job?: No Are you interested in more education?: No Please select the resources that you would like help with: None Currently or been in a relationship where the following occur: No concerns reported THRIVE Score: 0 AUDIT C Alcohol Use Questionnaire (AUDIT-C) 1. How often do you have a drink containing alcohol?: 4 or more times a week 2. How many drinks containing alcohol do you have on a typical day when you are drinking?: 1 or 2 3. How often do you have six or more drinks on one occasion?: Never Total Score: 4 JAZZ-7 AMB Questionnaire JAZZ-7 Date JAZZ - 7 assessed: 02/13/25 Feeling nervous, anxious, or on edge: 0 = Not at all Not being able to stop or control worryin = Not at all Worrying too much about different things: 0 = Not at all Trouble relaxin = Not at all Being so restless that it is hard to sit still: 0 = Not at all Becoming easily annoyed or irritable: 0 = Not at all Feeling afraid as if something awful might happen: 0 = Not at all Total JAZZ-7 score (0-4 normal; 5-9 mild; 10-14 moderate; 15-21 severe): 0 Source: Developed by Drs. Carlos Fitzgerald, Mckenzie Edmonds, Dontae Brown and colleagues, with an educational tyshawn from [employer] Physical exam (Primary Care) Vital Signs: Last Vital Signs Temp 98.1 F 02/13/25 14:49 Pulse 66 02/13/25 14:49 Resp 14 02/13/25 14:49 BP 142/76 H 02/13/25 14:49 Pulse Ox 97 02/13/25 14:49 Oxygen Delivery Method Room Air 02/13/25 14:49 Care Plan Goal for BP management: BP in range. BMI result Body Mass Index 32.6 BMI Assessment/Plan discussion: High Tobacco/Smoking Status: Tobacco use Status Tobacco use date assessed 02/13/25 02/13/25 14:59 Patient Tobacco Use Status Never used Tobacco 02/13/25 14:59 PHQ-9: PHQ-9 Score PHQ-9: Total score 0 02/13/25 15:00 Depression Screening Interpretation: Negative Thrive Assessment: Date of Thrive Assessment Date Thrive assessed 02/13/25 02/13/25 14:59 Currently or been in a relationship where the following occur: No concerns reported Advance Care Planning discussion: Exists, not on file Date of discussion: 02/13/25 Who was present: Patient Forms completed: Health Care Proxy and MOLST Coding Level of Care Code New Pt Level 4 (78673) Complex EM visit Add On G2211 Diagnoses Atypical nevi D22.9 HTN (hypertension) I10 Acute ischemic optic neuropathy H47.019 Additional Codes Vital Signs *Quality* - Advance Care Planning discussion: Exists, not on file ([id number]) Assessment & Plan Assessment & Plan (1) Atypical nevi: Code(s): D22.9 - Melanocytic nevi, unspecified Plan: Dermatology consult achieved (2) HTN (hypertension): Code(s): I10 - Essential (primary) hypertension Category: Medical Plan: BP in range. Continue current medications (3) Acute ischemic optic neuropathy: Code(s): H47.019 - Ischemic optic neuropathy, unspecified eye Category: Medical Plan: Right eye..Condition is stable Plan History of Present Illness - The patient is a 74-year-old male presenting with multiple health concerns including sleep apnea, dermatological issues, peripheral neuropathy, spinal stenosis, ischemic optic neuropathy, and recent lightheadedness. - Sleep apnea: The patient has been using a CPAP machine for sleep apnea and has recently switched to trazodone, which has improved his sleep quality. - Dermatological concerns: The patient reports itchiness and moles, with a recent switch in moisturizer improving symptoms. He has not seen a mechanical maintenance worker in years and is concerned due to a friend's melanoma diagnosis. - Peripheral neuropathy: The patient has experienced neuropathy for several years, initially in the feet, with some improvement. He reports numbness in fingers and has a history of nerve conduction studies. - Spinal stenosis: Diagnosed several years ago, the patient experiences chronic lower back pain but remains functional, able to walk and perform daily activities. - Ischemic optic neuropathy: The patient has limited vision in one eye and is under care at the [facility]. - Lightheadedness: Recently developed, the patient describes it as peculiar and associated with elevated blood pressure. Social History - Alcohol consumption: The patient reports drinking less than one drink per day and is currently on a diet to lose weight. 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. Review of Systems - General: Reports lightheadedness and feeling peculiar. - Dermatological: Reports itchiness and presence of moles. - Neurological: Reports numbness in fingers and peripheral neuropathy in feet. - Ophthalmological: Reports limited vision in one eye due to ischemic optic neuropathy. Physical Exam General: Cooperative and healthy appearing Nutritional Appearance: Well nourished Orientation/consciousness: Patient oriented x3 Limitations: No limitations Head: Normal to inspection General: Appearance normal, both eyes and all related structures Neck: Normal visual inspection Chest: Normal palpation of entire chest wall Respiratory: Take a deep breath, sir. Okay. Okay. All right. Thank you. You're welcome. ormal respiratory effort Neurology: Patient oriented x3. Reports neuropathy, numbness in fingers, and lightheadedness. Has ischemic optical neuropathy in one eye with limited vision, but peripheral vision is okay. Can drive and read with the other eye. Results Plan 1. Sleep Apnea - Continue CPAP therapy and consider increasing trazodone dosage if sleep disturbances persist. 2. Dermatological Concerns - Referral to mechanical maintenance worker for evaluation of moles and itchiness. 3. Peripheral Neuropathy - Blood work to be conducted to assess underlying causes. 4. Spinal Stenosis - Monitor symptoms; no immediate intervention required as patient remains functional. 5. Ischemic Optic Neuropathy - Follow-up at [facility] for ongoing management. 6. Lightheadedness - Routine blood work ordered to investigate potential causes. Discussion Notes I discussed with the patient the continuation of CPAP therapy and the option to increase trazodone dosage if sleep disturbances persist. I recommended a referral to a mechanical maintenance worker for evaluation of moles and itchiness. We agreed on conducting blood work to investigate the causes of peripheral neuropathy and lightheadedness. The patient will follow up at the [facility] for ischemic optic neuropathy management. Monitoring of spinal stenosis symptoms was advised, with no immediate intervention required as the patient remains functional. Patient Instructions - Continue using CPAP machine for sleep apnea. - Take trazodone as prescribed, and consider increasing the dose if sleep issues persist. - Follow up with a mechanical maintenance worker for skin evaluation. - Attend scheduled appointment at [facility] for eye care. - Monitor symptoms of spinal stenosis and report any changes. - Complete routine blood work as ordered. Orders: Orders Basic Metabolic Panel Today I10 - Essential (primary) hypertension Liver Panel Today I10 - Essential (primary) hypertension Thyroid Stimulating Hormone Today I10 - Essential (primary) hypertension UA and rflx microscopic Today I10 - Essential (primary) hypertension Complete Blood Count no Diff Today I10 - Essential (primary) hypertension Lipid Panel Today I10 - Essential (primary) hypertension Referrals Dermatology Referral D22.9 - Melanocytic nevi, unspecified Medications: New trazodone 50 mg PO BEDTIME PRN 90 tabs 1RF sleep
[2025-02-13 14:49] VITALS: BP 142/76; PULSE 66; RESP 14; TEMP 36.7; O2SAT 97; BMI 32.6
== END 2025-02-13 15:43 | disposition home or self-care (01) ==
LOC: HO.HMCSH 14:43
PROVIDERS: PCP Internal Medicine; Visit Provider Internal Medicine
DX: D22.9 Melanocytic nevi, unspecified (principal); I10 Essential (primary) hypertension; H47.019 Ischemic optic neuropathy, unspecified eye; Z00.00 Encounter for general adult medical examination without abnormal findings

== ENCOUNTER → 2025-02-13 14:43 | Outpatient (BNVA) | payer MEDICARE, SELFPAY | PROVIDERS: PCP Internal Medicine; Visit Provider Internal Medicine | DX: D22.9 Melanocytic nevi, unspecified (principal); I10 Essential (primary) hypertension; H47.011 Ischemic optic neuropathy, right eye | CPT/HCPCS: 99202 ==

== ENCOUNTER → 2025-03-19 13:48 | Outpatient (REF) | payer MEDICARE, SELFPAY ==
--- NOTE | 2025-03-19 13:51 | CA_ITS ---
Transthoracic Echocardiogram Patient (Last, First, Middle): Hector Villa, Gender: Male Date of : 1950 Age: 74 Procedure Date: 03/19/2025 Procedure Type: Transthoracic Echocardiogram Location: OP Height: 177.8 cm Weight: 95.26 kg BSA: 2.13 m2 Heart Rate: 58 bpm BP: 142 / 70 mmHg Sight Mounter: CINDY Referring MD: Suman Yen MD Symptoms: I77.89 - Other specified disorders of arteries and arterioles Study Quality: Adequate ECG Rhythm: Bradycardia Conclusions: - The left ventricular systolic function is normal. The calculated ejection fraction is 60% by biplane method. - No obvious valvular pathology seen on this study. - There is mild dilatation of the sinuses of Valsalva measuring 4.40 cm and moderate dilatation of the ascending aorta measuring 4.60 cm. Findings Left Ventricle Normal left ventricular cavity size. There is mildly increased left ventricular wall thickness. The left ventricular systolic function is normal. The calculated ejection fraction is 60% by biplane method. There is no evidence of regional wall motion abnormalities. Diastolic function is normal for age. LV peak GLS 14.2%, unclear if reliable. Right Ventricle Normal right ventricular cavity size. There is low normal right ventricular systolic function. Atria Both atria are normal in size. Aortic Valve There is a normal trileaflet aortic valve. There is no aortic valve stenosis. There is trace (trivial) aortic valve regurgitation. Mitral Valve The mitral valve appears normal. There is no mitral valve regurgitation. There is no mitral valve stenosis. Pulmonic Valve The pulmonic valve is likely normal. Tricuspid Valve There is mild tricuspid valve regurgitation. Tricuspid regurgitation envelope is inadequate for calculation of right ventricular systolic pressure. Great Vessels There is mild dilatation of the sinuses of Valsalva measuring 4.40 cm and moderate dilatation of the ascending aorta measuring 4.60 cm. Venous The inferior vena cava is normal in size and collapses greater than 50% with inspiration. Pericardium/Pleural There is no evidence of pericardial effusion. Prior Study Comparison Changes noted compared to prior study dated: 03/15/2024. See comment on ascending aorta. Recommendations, Care & Conclusions No obvious valvular pathology seen on this study. Measurements 2D Linear Measurements IVSd: 1.18 0.6-0.9/0.6-1.0 cm LVIDd: 4.65 3.9-5.3/4.2-5.9 cm LVIDd Index: 2.18 2.4-3.2/2.2-3.1 cm/m2 LVIDs: 3.73 2.0-3.6 cm LVPWd: 1.24 0.7-1.1 cm LA Diam: 4.20 2.7-3.8/3.0-4.0 cm LAIDs Index: 1.97 1.5-2.3 cm/m2 LV Mass: 262.96 67-162/88-224 g LV Mass Index: 123.46 43-95/49-115 g/m2 LVOT Diam: 2.60 3.0+(-)1.3 cm 2D Systolic Function EF 4C: 64.30 >55% EF 2C: 57.30 >55% EF BiP: 60.20 >55% Mitral Valve MV Pk E: 0.63 MV PK A: 0.57 MV Decel Time: 264.00 E/A: 1.10 E'Lateral: 7.29 E'Medial: 4.13 E/E' Med: 15.20 E/E' Lat: 8.60 PHT: 77.00 MVA PHT: 2.86 Decel [place]: 2.37 Aortic Valve AoV Pk Cortes: 1.38 AoV Mn Cortes: 1.01 AoV VTI: 0.30 AoV Pk Grad: 8.00 Aov Mn Grad: 5.00 STEPHEN Cont.VTI: 4.45 STEPHEN: 4.87 LVOT LVOT Pk Cortes: 1.26 LVOT Mn Cortes: 0.85 LVOT VTI: 0.25 LVOT Pk Grad: 6.00 LVOT Mn Grad: 3.00 LVOT Diam: 2.60 LVOT Area: 5.31 Diastolic Function MV Pk E: 0.63 MV Pk A: 0.57 E/A: 1.10 E'Medial: 4.13 E/E' Med: 15.20 E' Laterial: 7.29 E/E' Lat: 8.60 Right Ventricle TAPSE (mm): 17.50 TVS' Cortes: 9.36 Tricuspid Valve TR Pk Cortes: 2.34 TR Pk Grad: 22.00 Great Vessels Aorta Sinus of Valsalva: 4.40 2.0-3.5 cm Ao Asc: 4.60 2.1-3.4 cm Pulmonary Veins Pulm Vein S/D 1.20 Pulmonary Valve PV Pk Cortes: 0.71 Peak PV Grad: 2.00 Updated in Other Vendor System with Status of Final Slick Gerardo MD electronically signed on 03/19/2025 3:15:20 PM with status of Final
--- OUTSIDE RECORDS SUMMARY | 2025-03-19 14:15 | XMS_ITS ---
Author Organization [facility] Address [address] [place] [id number] Phone Care Team Providers Care Electronic Health Records Specialist Name Role Phone Carlos Hicks DO Primary Care Provider [phone] Allergies Active Allergy Reactions Criticality Noted Date Comments Grass Pollen 03/24/2021 Hay Fever And Allergy Relief 03/24/2021 Levonorgestrel-Ethi nyl Estrad 09/18/2015 Patient gets congestion due to seasonal allergies. Mold Other (See Comments) 12/02/2022 Ragweed Other (See Comments) 12/02/2022 Medications NIFEdipine (PROCARDIA) 20 MG immediate release capsule 1 capsule as needed Active tamsulosin (FLOMAX) 0.4 mg Cap Take by mouth daily. Active multivit with min-folic acid 0.4 mg Tab 1 tablet Orally Once a day Active Active Problems No known active problems Social History Tobacco Use Types Packs/Day Years Used Date Smoking Tobacco: Never Smokeless Tobacco: Never Tobacco Cessation:Counseling Given: Not Answered Alcohol Use Standard Drinks/Week Comments Yes 0 (1 standard drink = 0.6 oz pur e alcohol) Education Answer Date Recorded Are you interested in more education? Not on gabbie e 12/04/2022 Are you concerned about learning? Not on file 12/04/2022 No 12/04/2022 No 12/04/2022 Digital Access Answer Date Recorded No 01/02/2023 No 01/02/2023 Reliable internet access at home? Not on file 01/02/2023 Device with a working camera? Not on file Sex and Gender Information Value Date Recorded Sex Assigned at Not on file Legal Sex Male 9:59 PM EDT Gender Identity Not on file Sexual Orientation Not on file Last Filed Vital Signs Vital Sign Reading Time Taken Comments Blood Pressure 124/73 04/08/2024 9:26 AM EDT Pulse 85 04/08/2024 9:26 AM EDT Temperature 36.1 C (97 F) 04/08/2024 9:26 AM EDT Respiratory Rate 20 04/08/2024 9:26 AM EDT Oxygen Saturation 98% 04/08/2024 9:26 AM EDT Inhaled Oxygen Concentration - - Weight 93.4 kg (206 lb) 04/08/2024 9:26 AM EDT Height 177.8 cm (5' 10 ) 04/08/2024 9:26 AM EDT Body Mass Index 29.56 04/08/2024 9:26 AM EDT Plan of Treatment Health Maintenance Due Date Last Done Comments Adult Td,Tdap Booster 1950 LIPID PANEL 1950 DEPRESSION SCREENING 1964 HEPATITIS C SCREENING 1970 COLOGUARD 1997 COLONOSCOPY 1997 COLORECTAL CANCER SCREENING 1997 FIT TEST 1997 FOBT 1997 SIGMOIDOSCOPY 1997 VIRTUAL COLONOSCOPY 1997 PNEUMOCOCCAL VACCINES (50+ years) (1 of 1 - PCV) 2002 ZOSTER VACCINES (2 of 2) 06/12/2022 04/17/2022 COVID-19 VACCINE ( season) 2024 10/27/2023, 04/29/2023, 12/19/2022, Additional history exists RSV VACCINE Completed 09/01/2023 SMOKING STATUS SCREENING (Once After 26 Yrs) Completed 04/08/2024 HEPATITIS A VACCINES Aged Out No long er eligible based on patient's age to complete this topic HIB VACCINES Aged Out No longer eligi ble based on patient's age to complete this topic MENINGOCOCCAL VACCINES (ACWY) Aged Out No longer eligible based on patient's age to complete this topic MENINGOCOCCAL VACCINES (B) Aged Out N o longer eligible based on patient's age to complete this topic Medical Devices Not on file Insurance BLUE CROSS OUT OF STATE HMO MEDICARE PART A & B BLUE HOUSATONIC OUT OF STATE O MEDICARE PART A & B BLUE CROSS OUT [facility] PART [facility] & B BLUE CROSS OUT OF STATE HMO MEDICARE PART A & B O MEDICARE PART A & B BLUE CROSS OUT OF STATE HMO MEDICARE PART A & B BLUE CROSS OUT OF [facility] PART A & B BLUE CROSS OUT OF STATE HMO MEDICARE PART A & B BLUE CROSS OUT OF STATE HMO MEDICARE PART A & B Member Subscriber Plan / Payer (Ef fective 2022-Present) Name:Hector Villa Member ID:[id number] Relation to Subscriber:Self Name:Hector Villa Subscriber ID:[id number] Payer ID:[id number] Group ID:Not on file Type:Medicare Address: [facility] [address] [place] [address] Care Teams Electronic Health Records Specialist Relationship Specialty Start Date End Date Carlos Hicks DO [address] [place] [address]
--- OUTSIDE RECORDS SUMMARY | 2025-03-19 14:15 | XMS_ITS ---
Author Name [facility] Organization Unknown Assessment and Plan ID Update Date Source Alert Text [place] [employer]-[id number] 11/25/2021 [place] [facility] [facility] COVID Vaccination: This patient has received the PFR, COV-19,mRNA,LNP-S,PF,30-0.3,tr is-sucrose vaccination on 11/25/2021 with lot number [id number] [facility] #[id number]. Encounters Encounter Type Encounter Reason Primary Diagnosis Location Date Ambulatory Ischemic optic neuropathy, unspecified eye Ischemic optic neuropathy, unspecified eye [facility] 02/14/2025 Ambulatory Other localized visual field defect, bilateral Other localized visual field defect, bilateral [facility] 09/19/2024 Ambulatory Ischemic optic neuropathy, unspecified eye Ischemic optic neuropathy, unspecified eye [facility] 11/30/2023 Ambulatory Ischemic optic neuropathy, unspecified eye Ischemic optic neuropathy, unspecified eye [facility] 06/29/2023 Ambulatory Ischemic optic neuropathy, unspecified eye Ischemic optic neuropathy, unspecified eye [facility] 04/07/2023 Ambulatory Visual distortions o f shape and size Visual distortions of shape and size [facility] 04/06/2023 Ambulatory [facility] 02/19/2022 Ambulatory JAMIE UE [facility] 02/19/2022 Ambulatory [facility] 02/17/2022 Ambulatory JAMIE LE [facility] 02/17/2022 Ambulatory Other specified personal risk factors, not elsewhere classified [facility] 02/02/2022 Ambulatory Other specified personal risk factors, not elsewhere classified [facility] 12/25/2021 Ambulatory [facility] 11/19/2021 Ambulatory NEUROPATHY [facility] 11/19/2021 Ambulatory Vitreous degeneration, bilateral [facility] 11/14/2021 Ambulatory Other specified personal risk factors, not elsewhere classified [facility] 10/24/2021 Ambulatory [facility] 10/22/2021 Ambulatory NUCLEAR [facility] 10/22/2021 Emergency NUMBNESS IN FEET/HANDS [facility] 10/20/2021 Ambulatory Other specified personal risk factors, not elsewhere classified [facility] 10/14/2021 Ambulatory Other specified personal risk factors, not elsewhere classified [facility] 10/07/2021 Ambulatory Other specified personal risk factors, not elsewhere classified [facility] 10/07/2021 Care Team Organization Name Specialty Phone Email Start Date End Da te [employer] Insurance 05/23/2022 0 03/27/2024 [facility] 02/19 [facility] 11/14/2021 [facility] 10/2203/27/2024 [facility] 10/2203/27/2024 [facility] 10/20/2021 11/19/2021
== END ==
LOC: HO.CARD 13:48
PROVIDERS: PCP Internal Medicine; Visit Provider Internal Medicine Cardiovascular Disease
DX: I77.89 Other specified disorders of arteries and arterioles (principal)
CPT/HCPCS: 93306

== ENCOUNTER → 2025-03-19 13:51 | Outpatient (BNV) | payer MEDICARE, SELFPAY | PROVIDERS: PCP Internal Medicine; Visit Provider Internal Medicine | DX: I77.810 Thoracic aortic ectasia (principal) | CPT/HCPCS: 93306; 93356 ==

== ENCOUNTER 2025-03-22 12:54 | Outpatient (AMB) | payer MEDICARE, SELFPAY ==
--- NOTE | 2025-03-22 13:00 | MHC.OFFVIS ---
Intake Visit Reasons: 1 Year follow up Allergies mold Allergy (Verified 03/22/25 13:06) Unknown ragweed pollen Allergy (Verified 03/22/25 13:06) Unknown Medication List - Last Reconciled 03/22/25 by Alicia Barron CNP multivitamin (Daily Multi-Vitamin tablet) 1 tab PO DAILY nifedipine ER 30 mg PO DAILY tamsulosin 0.4 mg PO DAILY trazodone 50 mg PO BEDTIME PRN HPI Comments Details: He was waking during the night with more numbness to hands, usually in last two fingers, but could be any fingers. He had some left elbow pain and symptoms were bit more bothersome on left. No new weakness. He is left-handed. Numbness in feet was a bit better, mostly in toes. No pain. No falls. Some occasional lightheadedness. Sleep was okay with trazodone, using CPAP nightly. He was under some stress recently due to health issues of friends. He was drinking 5-6 glasses of wine/week. 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 He has intermittent numbness L>R jostin the big toe. Symptoms in the hands, more in the dominant left hand. In the last couple of years ,he's had some persistent numbness in his feet, most in the toes and soles of the feet for which he had a nerve conduction study in 01/2022 at [employer] and was told that he had a neuropathy, but no further workup was done. He gets intermittent numbness in his fingers occasionally upon awakening. Sometimes, it is in the ulnar nerve distribution if his elbows are resting or if he is holding a phone for long periods. At other times, it is in the other fingers. He also has low back pain and his MRI showed spinal stenosis of the lumbar spine. 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 He has no glaucoma or known macular degeneration, but has early cataracts. No history of diabetes or hyperlipidemia. He has cut down his drinking. [facility] Medical History (Updated 03/22/25 @ 13:06 by Alicia Barron CNP) Acute ischemic optic neuropathy Nocturnal hypoxemia RADHA (obstructive sleep apnea) Obesity (BMI 30-39.9) BPH (benign prostatic hyperplasia) HTN (hypertension) Gastritis Tubular adenoma Surgical History Hx of appendectomy (12/22/23) H/O colonoscopy (~01/29/23) Family History Father Alcohol abuse Mother Pancreatic cancer AD (Alzheimer's disease) Thyroid cancer Social History Housing: House Alcohol intake: current Alcohol intake frequency: 0-2 drinks per day Patient Tobacco Use Status: Never used Tobacco service: No Current occupational status: retired Cognitive needs: No Hearing needs: No Vision needs: Yes (reading glasses) Review of Systems Const Denies chills, Denies daytime sleepiness, Reports difficulty sleeping, Denies fatigue, Denies fever(s), Denies frequent falls, Denies headache(s), Denies increased appetite, Denies poor appetite, Denies snoring, Denies weakness, Denies weight gain and Denies weight loss Eyes Denies loss of vision ENT Denies vertigo, Denies dizziness, Denies headache(s) and Denies neck pain Card Denies chest pain at rest, Denies chest pain with activity, Denies syncope, Denies leg edema, Denies palpitations, Denies dyspnea and Denies dyspnea on exertion Resp Denies cough, Denies dyspnea, Denies dyspnea on exertion and Denies snoring GI Denies abdominal pain, Denies constipation, Denies heartburn, Denies diarrhea and Denies nausea Denies urinary frequency, Denies urinary incontinence and Denies urinary urgency Musc Denies abnormal gait, Reports back pain, Denies myalgias, Denies arthralgias, Denies neck pain, Reports numbness and Reports tingling Neuro Denies abnormal gait, Denies vertigo, Denies dizziness, Denies syncope, Denies frequent falls, Denies headache(s), Denies lack of coordination, Denies loss of vision, Denies memory loss, Reports numbness, Denies Other visual disturbances, Denies restless legs, Denies seizure-like activity, Reports tingling, Denies paresthesias, Denies tremor(s) and Denies weakness Psych Denies anxiety, Denies depression, Denies auditory hallucinations, Denies memory loss and Denies visual hallucinations Endo Denies fatigue and Denies palpitations Physical Exam Const Other: General Appearance:? normal, in no acute distress. Heart:? S1, S2 normal, no murmurs. Lungs:? clear anteriorly and posteriorly. Musculoskeletal:? normal. Extremities:? no edema. Psych:? alert, oriented, cognitive function intact, cooperative with exam. Neuro Other: Abnormal Neurological Findings:?none.? Mental Status: alert and oriented X 3. Normal attention, orientation, memory, and affect. Cranial Nerves: Pupils are equal, round, and reactive to light. External ocular muscles are intact. Visual miles are full, no ptosis. Face is symmetrical, no facial weakness or droop. Facial sensations are normal. Tongue protrudes in midline. Palate elevates symmetrically. Shoulder shrugging is normal Motor Examination: Normal muscle tone, bulk and strength. No atrophy or fasciculations. No drift of the extended upper extremities. DTR 2+. Plantars are flexor. Straight Leg Raisin degrees. Sensory Exam: Normal light touch, temperature, pinprick, vibration, and joint-position sensations. Rhomberg sign is absent. Coordination: No ataxia. No titubation. Nourml-ec-whek, hdlh-brwt-yeit test, and rapid alternating movements were normal. Gait Exam: Within normal limits. Cerebellar Signs: Miyfde-eb-ysik and ifee-xp-kxvs is normal. No dysdiadochokinesia. Extrapyramidal System: No tremor, rigidity with normal facial expressions. No bradykinesia. No bradyphrenia. Normal arm swing and posture. No propulsion or retropulsion. Speech: Normal. No dysphasia or dysarthria. Results Reviewed Results Reviewed: 10/26/23 NCV/EMG ALL Early Carpal tunnel syndrome on the left. 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 Normal EMG of the left C5-T1 innervated muscles and EMG of the left L4-S1 is consistent with mild chronic neuropathic changes. Assessment & Plan Assessment & Plan (1) Peripheral neuropathy: Code(s): G62.9 - Polyneuropathy, unspecified Category: Medical Qualifiers: Peripheral neuropathy type: polyneuropathy, unspecified Qualified Code(s): G62.9 - Polyneuropathy, unspecified Plan: Stay physically active. (2) Left carpal tunnel syndrome: Code(s): G56.02 - Carpal tunnel syndrome, left upper limb Category: Medical Plan: Recommend trying wrist splint at night. (3) Spinal stenosis of lumbar region: Code(s): M48.061 - Spinal stenosis, lumbar region without neurogenic claudication Category: Medical Qualifiers: Neurogenic claudication status: without neurogenic claudication Qualified Code(s): M48.061 - Spinal stenosis, lumbar region without neurogenic claudication (4) RADHA on CPAP: Code(s): G47.33 - Obstructive sleep apnea (adult) (pediatric) Category: Medical Plan . Coding Level of Care Code Est Pt Level 4 (09138) Diagnoses Peripheral polyneuropathy G62.9 Peripheral neuropathy type: polyneuropathy, unspecified Left carpal tunnel syndrome G56.02 Spinal stenosis of lumbar region without neurogenic claudication M48.061 Neurogenic claudication status: without neurogenic claudication RADHA on CPAP G47.33
--- OUTSIDE RECORDS SUMMARY | 2025-03-22 13:40 | XMS_ITS | Clinical Summary ---
Author Organization [facility] Address [address] [address] Phone Care Team Providers Care City Editor Name Role Phone FabiolaCarlos DO Primary Care Provider [phone] Allergies Active Allergy Reactions Criticality Noted Date [...] & B BLUE CROSS OUT OF STATE O MEDICARE PART A & B Member Subscriber Plan / Payer (Ef fective 2022-Present) Name:DenymaddieHector herr Member ID:[id number] Relation to Subscriber:Self Name:DenymaddieHector herr Subscriber ID:[id number] Payer ID:[id number] Group ID:Not on file Type:Medicare Address: [employer] [address] BLUE CROSS OUT OF STATE HMO MEDICARE PART A & B BLUE CROSS OUT OF STATE HMO MEDICARE PART A & B [facility] & B BLUE CROSS OUT OF STATE O MEDICARE PART A & B O MEDICARE PART A & B BLUE CROSS OUT OF STATE HMO MEDICARE PART A & B BLUE CROSS OUT OF [facility] PART A & B Care Teams City Editor Relationship Specialty Start Date End Date Carlos Hicks DO [address] [place] [phone] PCP - General Internal Medicine 03/24/21 Additional Source Comments The information contained in this document represents components of the legal health record. It is not the complete legal health record.[facility]
== END 2025-03-22 13:28 | disposition home or self-care (01) ==
LOC: HO.HSM 12:55
PROVIDERS: PCP Internal Medicine; Referring Provider Internal Medicine; Visit Provider Registered Nurse
DX: G62.9 Polyneuropathy, unspecified (principal); G56.02 Carpal tunnel syndrome, left upper limb; M48.061 Spinal stenosis, lumbar region without neurogenic claudication; G47.33 Obstructive sleep apnea (adult) (pediatric)
CPT/HCPCS: 99214

== ENCOUNTER → 2025-03-22 12:54 | Outpatient (BNVA) | payer MEDICARE, SELFPAY | PROVIDERS: PCP Internal Medicine; Referring Provider Internal Medicine; Visit Provider Registered Nurse | DX: M48.061 Spinal stenosis, lumbar region without neurogenic claudication (principal); G47.33 Obstructive sleep apnea (adult) (pediatric); G56.02 Carpal tunnel syndrome, left upper limb; G62.9 Polyneuropathy, unspecified | CPT/HCPCS: 99212 ==

== ENCOUNTER 2025-03-27 13:28 | Outpatient (AMB) | payer MEDICARE, SELFPAY ==
[2025-03-27 13:33] VITALS: BP 130/76; PULSE 60; O2SAT 96; BMI 32.3
--- NOTE | 2025-03-27 13:33 | MHC.OFFVIS ---
Vital Signs 03/27/25 13:33 Height 5 ft 8.58 in Weight 216 lb BMI 32.3 BP 130/76 Blood Pressure Location Lt brachial Position Sitting Pulse 60 Pulse Source Pulse Oximeter Pulse Oximetry (%) 96 Oxygen Delivery Method Room Air Intake Visit Reasons: Somnolence Intake Note: pt is here for follow up and states he is fine today, cpap is going okay, he states more mask leakage. 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 HE IS AN AVID USER OF CPAP, AND SLEEPS GOOD EVERY NIGHT. USES NASAL MASK WITH AUTO PAP MODE PRESSURE SETTING 6-20 CM . THERE IS NO SIGNIFICANT AIR LEAK HE SLEEPS GOOD. THERE IS NO ISSUE WITH THE CPAP DEVICE. HE HAS NO DAYTIME SLEEPINESS, WEIGHT HAS NOT CHANGED MUCH. [facility] Medical History Acute ischemic optic neuropathy Nocturnal hypoxemia RADHA (obstructive sleep apnea) Obesity (BMI 30-39.9) BPH (benign prostatic hyperplasia) HTN (hypertension) Gastritis Tubular adenoma Surgical History Hx of appendectomy (12/22/23) H/O colonoscopy (~01/29/23) Family History Father Alcohol abuse Mother Pancreatic cancer AD (Alzheimer's disease) Thyroid cancer Social History Housing: House Alcohol intake: current Alcohol intake frequency: 0-2 drinks per day Patient Tobacco Use Status: Never used Tobacco service: No Current occupational status: retired Cognitive needs: No Hearing needs: No Vision needs: Yes (reading glasses) Review of Systems Const All systems reviewed & are unremarkable except as noted in HPI and below Eyes Reports blurry vision (Rt eye) ENT Reports no additional complaints Card Denies chest pain, Denies irregular heart rhythm and Denies leg edema Resp Reports as per HPI and Reports no additional complaints GI Reports no additional complaints Reports no additional complaints Musc Reports no additional complaints Skin/Breast Reports system reviewed and no additional complaints, except as documented Neuro Reports no additional complaints Psych Reports no additional complaints Endo Reports no additional complaints Anuj/Lymph Reports no additional complaints Aller/Immun Reports no additional complaints Physical Exam Vital Signs: Last Vital Signs Pulse 60 03/27/25 13:33 BP 130/76 03/27/25 13:33 Pulse Ox 96 03/27/25 13:33 Oxygen Delivery Method Room Air 03/27/25 13:33 BMI result Body Mass Index 32.3 Const General: healthy appearing, comfortable, no acute distress, alert and awake Orientation/consciousness: patient oriented x3 HEENT Head: Yes normal to inspection General nose exam: No nasal polyps present and No nasal discharge present Face and sinus: Yes sinuses nontender Mouth: oropharynx normal Throat: Yes posterior oropharynx normal Eyes General: appearance normal, both eyes and all related structures Neck Neck: Yes normal visual inspection, Yes no lymphadenopathy, Yes trachea midline and Yes no JVD Thyroid: Thyroid normal Chest Chest palpation & inspection: normal inspection of the chest, normal palpation of entire chest wall and no tenderness Resp Effort & Inspection: normal respiratory effort Auscultation: clear to auscultation bilaterally, no crackles and no wheezes Cardio Palpation: normal PMI Rate: regular rate Rhythm: regular rhythm Heart sounds: no gallops and no murmurs Peripheral pulses: Peripheral pulses 2+ throughout GI Palpation (GI): Soft to palpation, nontender, No hepatosplenomegaly present and no masses Auscultation: normal bowel sounds Back/Spine/Pelvis Thoracic/Lumbar Spine: thoracic and lumbar spine normal to inspection Skin General skin exam: no rashes or lesions noted Neuro General: patient oriented x3 and no focal motor deficits Cranial nerves: Yes CN's II-XII intact bilaterally Extrem General: Yes normal to inspection, Yes no clubbing, cyanosis or edema and Yes no calf tenderness Psych Speech and movement: Normal speech and movement present Results Reviewed Results Reviewed: COMPLIANCE REPORT FOR THE LAST 30 NIGHTS SHOWS THAT HE USED 30/30 NIGHTS, 100%. AVERAGE USE IT PER NIGHT 6 HOURS 40 MINUTES. MAXIMUM LEAK 32.8 L, NOT SIGNIFICANT. RESIDUAL AHI 1.5 Assessment & Plan Assessment & Plan (1) Obesity (BMI 30-39.9): Comment: PATIENT IS MODERATELY OVERWEIGHT, HE HAS BEEN TRYING TO REDUCE HIS WEIGHT, MAINLY BY WATCHING THE DIET. HE DID LOSE 8 LB OF WEIGHT IN THE LAST 6 MONTHS. Code(s): E66.9 - Obesity, unspecified Category: Medical Plan: DISCUSSED ABOUT THE WEIGHT ISSUE, AND ENCOURAGED HIM TO CUT DOWN THE CALORIES A LITTLE MORE, AND WALK UP TO ABOUT 2 MILES EVERY DAY. (2) RADHA (obstructive sleep apnea): Comment: CONFIRMED BY HOME SLEEP STUDY THAT HE HAS RATHER SEVERE OBSTRUCTIVE SLEEP APNEA. HE IS USING HIS CPAP VERY REGULARLY. NASAL MASK, AUTO PAP MODE, PRESSURE SETTING 6-20 CM. HAS GOOD COMPLIANCE . RESIDUAL AHI ONLY 1.5 HE SLEEPS FINE. Code(s): G47.33 - Obstructive sleep apnea (adult) (pediatric) Category: Medical Plan: COMMENDED FOR GOOD COMPLIANCE AND ADVISED TO KEEP ON USING THE CPAP REGULARLY EVERY NIGHT (3) Nocturnal hypoxemia: Comment: RESOLVED WITH USE OF CPAP Code(s): G47.34 - Idiopathic sleep related nonobstructive alveolar hypoventilation Category: Medical Plan: NO PROBLEM WITH THE OXYGEN LONG HE USES CPAP REGULARLY Coding Level of Care Code Est Pt Level 3 (10367) Diagnoses Obesity (BMI 30-39.9) E66.9 RADHA (obstructive sleep apnea) G47.33 Nocturnal hypoxemia G47.34
--- OUTSIDE RECORDS SUMMARY | 2025-03-27 14:44 | XMS_ITS | Clinical Summary ---
Author Organization [facility] Address [address] [address] Phone Care Team Providers Care Racing Board Marker Name Role Phone Carlos Hicks DO Primary Care Provider [phone] Allergies Active Allergy Reactions Criticality Noted Date [...] Payer (Ef fective 2022-Present) Name:DenymaddieHector herr Member ID:[id number] Relation to Subscriber:Self Name:DenymaddieHector herr Subscriber ID:[id number] Payer ID:[id number] Group ID:Not on file Type:Medicare Address: [employer] [address] BLUE CROSS OUT OF STATE HMO MEDICARE PART A & B BLUE CROSS OUT OF STATE HMO MEDICARE PART A & B BLUE CROSS OUT OF [facility] MEDIC[facility] PART A & B BLUE CROSS OUT OF STATE O MEDICARE PART A & B O MEDICARE PART A & B BLUE CROSS OUT OF STATE HMO MEDICARE PART A & B [facility] CROSS OUT OF [facility] & B Member Subscriber Plan / Payer (Ef fective 2022-Present) Name:Hector Villa Member ID:[id number] Relation to Subscriber:Self Name:Hector Villa Subscriber ID:[id number] Payer ID:[id number] Group ID:Not on file Type:Medicare Address: [facility] fake company [employer] [facility]. [address] [facility] [place] [address] Care Teams Racing Board Marker Relationship Specialty Start Date End Date Carlos Hicks DO [address] [place] [id number] PCP - General Internal Medicine 03/24/21 Additional Source Comments The information contained in this document represents components of the legal health record. It is not the complete legal health record.[facility]
== END 2025-03-27 13:53 | disposition home or self-care (01) ==
LOC: HO.HPS 13:28
PROVIDERS: PCP Internal Medicine; Visit Provider Internal Medicine
DX: E66.9 Obesity, unspecified (principal); G47.33 Obstructive sleep apnea (adult) (pediatric); G47.34 Idiopathic sleep related nonobstructive alveolar hypoventilation
CPT/HCPCS: 99213

== ENCOUNTER → 2025-03-27 13:28 | Outpatient (BNVA) | payer MEDICARE, SELFPAY | PROVIDERS: PCP Internal Medicine; Visit Provider Internal Medicine | DX: G47.34 Idiopathic sleep related nonobstructive alveolar hypoventilation (principal); G47.33 Obstructive sleep apnea (adult) (pediatric); Z99.89 Dependence on other enabling machines and devices; E66.9 Obesity, unspecified; Z68.32 Body mass index [BMI] 32.0-32.9, adult | CPT/HCPCS: 99212 ==

== ENCOUNTER 2025-03-29 12:25 | Outpatient (AMB) | payer MEDICARE, SELFPAY ==
[2025-03-29 12:33] VITALS: BP 120/76; PULSE 79; BMI 32.3
--- NOTE | 2025-03-29 12:33 | A.OFFVIS_ITS ---
Vital Signs 03/29/25 12:33 Height 5 ft 8.58 in Weight 216 lb 0.848 oz BMI 32.3 BP 120/76 Blood Pressure Location Lt brachial Position Sitting Pulse 79 Intake Visit Reasons: 1 yr s/p echo Intake Note: 1 year follow-up with ekg after echo feeling good Digital Community Manager Required: No Allergies mold Allergy (Verified 03/27/25 13:38) Unknown ragweed pollen Allergy (Verified 03/27/25 13:38) Unknown Medication List - Last Reconciled 03/29/25 by Suman Yen MD multivitamin (Daily Multi-Vitamin tablet) 1 tab PO DAILY nifedipine ER 30 mg PO DAILY tamsulosin 0.4 mg PO DAILY trazodone 50 mg PO BEDTIME PRN HPI Comments Details: Hector comes for follow-up. Patient denies any active cardiac symptoms. Recent echocardiogram shows ascending aortic aneurysm at 4.6 cm which is slightly enlarged compared to last year at 4.2 cm. Patient was no active chest pain with exertion. Denies any shortness of breath. No orthopnea, PND. He says blood pressure is generally well controlled. He watches his salt. He was also most recently started exercising and putting most steps. 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 Nocturnal hypoxemia RADHA (obstructive sleep apnea) Obesity (BMI 30-39.9) BPH (benign prostatic hyperplasia) HTN (hypertension) Gastritis Tubular adenoma Surgical History Hx of appendectomy (12/22/23) H/O colonoscopy (~01/29/23) Family History Father Alcohol abuse Mother Pancreatic cancer AD (Alzheimer's disease) Thyroid cancer Social History Housing: House Alcohol intake: current Alcohol intake frequency: 0-2 drinks per day Patient Tobacco Use Status: Never used Tobacco service: No Current occupational status: retired Cognitive needs: No Hearing needs: No Vision needs: Yes (reading glasses) Review of Systems Const Denies chills, Denies fatigue, Denies fever(s), Denies frequent falls, Denies weakness, Denies weight gain and Denies weight loss ENT Denies dizziness Card Denies chest pain, Denies leg edema, Denies lightheadedness, Denies palpitations, Denies dyspnea, Denies dyspnea on exertion, Denies orthopnea and Denies other (loss of consciousness) Resp Denies cough, Denies dyspnea and Denies dyspnea on exertion GI Denies hematochezia and Denies change in stool character Musc Denies abnormal gait, Denies muscle weakness, Denies numbness, Denies radiating pain into limb and Denies tingling Neuro Denies Abnormal speech present, Denies abnormal gait, Denies dizziness, Denies frequent falls, Denies numbness, Denies tingling and Denies weakness Endo Denies fatigue and Denies palpitations Physical Exam Vital Signs: Last Vital Signs Pulse 79 03/29/25 12:33 BP 120/76 03/29/25 12:33 BMI result Body Mass Index 32.3 Const General: cooperative, comfortable, no acute distress, alert, awake and Physically active Nutritional Appearance: obese Orientation/consciousness: patient oriented x3 Limitations: no limitations Neck Neck: Yes trachea midline, Yes supple and Yes no JVD Carotids: no bruits Resp Effort & Inspection: normal respiratory effort Auscultation: clear to auscultation bilaterally Cardio Jugular venous distension: no JVD Palpation: normal PMI Rate: regular rate Rhythm: regular rhythm Heart sounds: S1 normal heart sound present, S2 normal heart sound present, no click, no gallops, no murmurs and no rubs GI Auscultation: normal bowel sounds Neuro General: patient oriented x3 and no focal motor deficits Speech: No Abnormal speech present Extrem General: Yes no clubbing, cyanosis or edema Office Procedures EKG Details: EKG shows normal sinus rhythm with first-degree AV block [id number], Complete Assessment & Plan Assessment & Plan (1) Ascending aortic aneurysm: Code(s): I71.21 - Aneurysm of the ascending aorta, without rupture Category: Medical Plan: Ascending aortic aneurysm with moderate enlargement. Does not require any surgical intervention at this point time however requires continued surveillance and observation. We discussed management of ascending aortic aneurysm in details. Will refer him for genetic testing, most locally probably at [facility]. If he was any identified gene then would advise his kids to be screened further otherwise kids will need evaluation for ascending aorta by echocardiogram. This was discussed with him. Continue aggressive blood pressure management. Continue to monitor lipids with target goal LDL less than 100 mg/dL. Follow-up echocardiogram in 1 year's time. We discussed about avoiding sudden isometric exercise. Also advised to seek emergency care if he was sudden severe chest pain that could represent acute aortic syndrome (2) HTN (hypertension): Code(s): I10 - Essential (primary) hypertension Category: Medical Plan: Hypertension which is currently well optimized advised to monitor blood pressure and maintain a log. Goal blood pressure less than 130/84. Low-salt diet was discussed. Will follow up in the clinic in 1 year's time, sooner p.r.n.. Thank you for allowing me to partake in his care Coding Level of Care Code Est Pt Level 4 (23446) Complex EM visit Add On G2211 Diagnoses Ascending aortic aneurysm I71.21 HTN (hypertension) I10 CPT Codes EKG - CPT: 85312-[id number], Complete ([id number])
== END 2025-03-29 12:58 | disposition home or self-care (01) ==
LOC: HO.HCS 12:25
PROVIDERS: PCP Internal Medicine; Visit Provider Internal Medicine Cardiovascular Disease
DX: I71.21 Aneurysm of the ascending aorta, without rupture (principal); I10 Essential (primary) hypertension
CPT/HCPCS: 93010; 99214; G2211

== ENCOUNTER → 2025-03-29 12:25 | Outpatient (BNVA) | payer MEDICARE, SELFPAY | PROVIDERS: PCP Internal Medicine; Visit Provider Internal Medicine Cardiovascular Disease | DX: I71.21 Aneurysm of the ascending aorta, without rupture (principal); I10 Essential (primary) hypertension | CPT/HCPCS: 93005; 99212 ==

== ENCOUNTER 2025-05-29 14:34 | Outpatient (AMB) | payer MEDICARE, SELFPAY ==
--- NOTE | 2025-05-29 14:36 | MHC.PC.OV ---
Vital Signs 05/29/25 14:42 Height 5 ft 8.19 in Weight 210 lb 8 oz BMI 31.8 BP 137/76 Blood Pressure Location Rt brachial Position Sitting Pulse 96 Pulse Source Pulse Oximeter Temp 98.1 F Temp Source Temporal Artery Scan Pulse Oximetry (%) 96 Oxygen Delivery Method Room Air Intake Visit Reasons: 3 month f/u Personal Development Educator Required: No Accompanied by: Self / Same As Patient Allergies mold Allergy (Verified 05/29/25 14:36) Unknown ragweed pollen Allergy (Verified 05/29/25 14:36) Unknown Tobacco use date assessed: 05/29/25 Fall risk assessment: No Falls in past year Last assessed Fall Risk: 05/29/25 Dental Screening Dental Screen Date: 05/29/25 Did you have a dental visit in the last 12 months?: Yes Did you have a dental problem in the last 6 months where you did not have access to dental care?: No Was dental information given to patient?: Patient has dentist [facility] Medical History 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 Nocturnal hypoxemia RADHA (obstructive sleep apnea) Obesity (BMI 30-39.9) BPH (benign prostatic hyperplasia) HTN (hypertension) Gastritis Tubular adenoma Surgical History Hx of appendectomy (12/22/23) H/O colonoscopy (~01/29/23) Family History Father Alcohol abuse Mother Pancreatic cancer AD (Alzheimer's disease) Thyroid cancer Social History Housing: House Alcohol intake: current Alcohol intake frequency: 0-2 drinks per day Patient Tobacco Use Status: Never used Tobacco service: No Current occupational status: retired Cognitive needs: No Hearing needs: No Vision needs: Yes (reading glasses) Questionnaire PHQ-9 Over the last 2 weeks, how often have you been bothered by any of the following problems? 1. Little interest or pleasure in doing things: not at all 2. Feeling down, depressed, or hopeless: not at all 3. Trouble falling or staying asleep, or sleeping too much: not at all 4. Feeling tired or having little energy: not at all 5. Poor appetite or overeating: not at all 6. Feeling bad about yourself - or that you are a failure or have let yourself or your family down: not at all 7. Trouble concentrating on things, such as reading the newspaper or watching television: not at all 8. Moving or speaking so slowly that other people could have noticed. Or the opposite - being so fidgety or restless that you have been moving around a lot more than usual: not at all 9. Thoughts that you would be better off or of hurting yourself in some way: not at all Total score: 0 Depression Screening Interpretation: Negative Depression Screening Done: Yes Source: Developed by Drs. Carlos Fitzgerald, Mckenzie Edmonds, Dontae Brown and colleagues, with an educational tyshawn from [employer]. Thrive Questionnaire Date Thrive assessed: 05/29/25 I am a: Patient What is your living situation today?: I have a steady place to live Within the past 12 months, did the food you bought not last and you didn't have the money to get more?: Never true Within the past 12 months, did you worry whether your food would run out before you got money to buy more?: Never true Do you have trouble paying for medicines?: No Do you have trouble getting transportation to medical appointments?: No Do you have trouble paying your heating and electricity bill?: No Do you have trouble taking care of your child, family member or friend?: No Do you have trouble with day-to-day activities such as bathing, preparing meals, shopping, managing finances, etc.?: No Are you currently unemployed and looking for a job?: No Are you interested in more education?: No Please select the resources that you would like help with: None Currently or been in a relationship where the following occur: No concerns reported THRIVE Score: 0 AUDIT C Alcohol Use Questionnaire (AUDIT-C) 1. How often do you have a drink containing alcohol?: 4 or more times a week 2. How many drinks containing alcohol do you have on a typical day when you are drinking?: 1 or 2 3. How often do you have six or more drinks on one occasion?: Never Total Score: 4 JAZZ-7 AMB Questionnaire JAZZ-7 Date JAZZ - 7 assessed: 05/29/25 Feeling nervous, anxious, or on edge: 0 = Not at all Not being able to stop or control worryin = Not at all Worrying too much about different things: 0 = Not at all Trouble relaxin = Not at all Being so restless that it is hard to sit still: 0 = Not at all Becoming easily annoyed or irritable: 0 = Not at all Feeling afraid as if something awful might happen: 0 = Not at all Total JAZZ-7 score (0-4 normal; 5-9 mild; 10-14 moderate; 15-21 severe): 0 Source: Developed by Drs. Carlos Fitzgerald, Mckenzie Edmonds, Dontae Brown and colleagues, with an educational tyshawn from [employer]. Physical exam (Primary Care) Vital Signs: Last Vital Signs Temp 98.1 F 05/29/25 14:42 Pulse 96 05/29/25 14:42 BP 137/76 05/29/25 14:42 Pulse Ox 96 05/29/25 14:42 Oxygen Delivery Method Room Air 05/29/25 14:42 BMI result Body Mass Index 31.8 Tobacco/Smoking Status: Tobacco use Status Tobacco use date assessed 05/29/25 05/29/25 14:37 Patient Tobacco Use Status Never used Tobacco 05/29/25 14:36 PHQ-9: PHQ-9 Score PHQ-9: Total score 0 05/29/25 14:38 Depression Screening Interpretation: Negative Thrive Assessment: Date of Thrive Assessment Date Thrive assessed 05/29/25 05/29/25 14:38 Currently or been in a relationship where the following occur: No concerns reported Office Procedures Flu Questionnaire Does the patient have a severe egg allergy?: No Does the patient have severe life threatening allergies?: No Does the patient have a fever or illness today?: No Has the patient ever had Guillain-Waverly Syndrome?: No Has the patient ever had any past reaction to a flu shot?: No Immunizations Fluarix [id number] (PF) 45 mcg (15 mcg x 3)/0.5 mL IM syringe Performing Provider: Robin Lee MD [facility] Administered by: Cristal Simon CMA on 05/29/25 14:50 Dose Route Admin Location Dispensed Lot Number Expiration Date NDC Human Resource Consultant 0.5 mL IM Left Deltoid 0.5 mL [id number] 02/05/26 [id number] IPM [place] VIS Given Date VIS Provided VIS Publication Date 05/29/25 Single Vaccine 24 Eligibility Eligibility Date Funding Source Not [facility] Eligible 05/29/25 Private Coding Level of Care Code Est Pt Level 4 (29785) Complex EM visit Add On G2211 Diagnoses Cervical neuropathy G54.2 HTN (hypertension) I10 Assessment & Plan Assessment & Plan (1) Cervical neuropathy: Code(s): G54.2 - Cervical root disorders, not elsewhere classified Plan: PT ordered (2) HTN (hypertension): Code(s): I10 - Essential (primary) hypertension Category: Medical Plan: History of Present Illness - The patient is a 74-year-old male presenting with peripheral neuropathy and a request for a dermatological check. - Peripheral neuropathy affects the right arm, with numbness and stiffness, worsened by neck stiffness, and partially relieved by massage therapy. - No loss of power or dexterity in the right hand; daily activities remain unaffected. 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 - Weight management through increased physical activity, resulting in a 14-pound weight loss over the past year. - Medications include nifedipine, tamsulosin, and trazodone, with improved sleep apnea management. Social History - The patient has been actively engaging in physical activity, averaging 10,000 steps daily, contributing to weight loss. Review of Systems - Neurological: Reports numbness in the right arm, denies loss of power or dexterity. - Ophthalmologic: Reports impaired central vision in the right eye, denies complete vision loss. Physical Exam General: Cooperative and healthy appearing Nutritional Appearance: Well nourished Orientation/consciousness: Patient oriented x3 Limitations: No limitations Head: Normal to inspection General: Appearance normal, both eyes and all related structures Neck: Normal visual inspection Chest: Normal palpation of entire chest wall Respiratory: N ormal respiratory effort Neurology: Patient oriented x3, reports ischemic optical neuropathy in the right eye with impaired central vision but intact peripheral vision. Results Plan - Initiate physical therapy for the upper extremity to address neuropathy symptoms. - Consider MRI of the neck if physical therapy does not alleviate symptoms. - Schedule a dermatological check to screen for skin conditions. - Encourage continuation of exercise regimen and weight management. - Follow up in six months to reassess conditions. Discussion Notes I discussed with the patient the importance of initiating physical therapy to address the neuropathy symptoms and the potential need for an MRI if symptoms persist. We also talked about scheduling a dermatological check due to concerns about melanoma. I encouraged the patient to continue his exercise regimen and weight management efforts. A follow-up appointment was scheduled for six months to reassess his conditions and review any new developments. Patient Instructions - Start physical therapy for your arm to help with the numbness. - Keep up with your walking routine and try to lose more weight. - Get the dermatology appointment scheduled to check your skin. - Return for a follow-up in six months. Orders: Orders PT Evaluation and Treatment Today G54.2 - Cervical root disorders, not elsewhere classified Influenza [id number] Immunization Today Z23 - Encounter for immunization Prostate Specific Antigen Scr Today I10 - Essential (primary) hypertension
[2025-05-29 14:42] VITALS: BP 137/76; PULSE 96; TEMP 36.7; O2SAT 96; BMI 31.8
--- OUTSIDE RECORDS SUMMARY | 2025-05-29 19:38 | XMS_ITS | Clinical Summary ---
Author Organization [facility] Address [address] [address] Phone Care Team Providers Care Prestidigitator Name Role Phone Carlos Hicks DO Primary Care Provider [phone] Allergies Active Allergy Reactions Criticality Noted Date [...] ZOSTER VACCINES (2 of 2) 06/12/2022 04/17/2022 INFLUENZA VACCINE (#1) 2025 , 05/06/2022, 04/26/2020, Additional history exists COVID-19 VACCINE (2024- season) 2025 10/27/2023, 04/29/2023, 12/19/2022, Additional history exists RSV [...] Medical Devices Not on file Insurance [facility] B [facility] [facility] & B [employer] [place] OUT OF [facility] MEDICARE PART A & B BL[place] OUT OF STATE HMO MEDICARE PART A & B [employer] OUT OF [facility] MEDICARE PART A & B [place] OUT OF STATE HMO MEDICARE PART A & B [facility] HMO MEDICARE PART A & B [place]UE [place] OUT OF STATE HMO MEDICARE PART A & B [place] [place] OUT OF [facility] PART A & B Care Teams Prestidigitator Relationship Specialty Start Date End Date Carlos Hicks DO [address] [place] [id number] PCP - General Internal Medicine 03/24/21 Additional Source Comments The information contained in this document represents components of the legal health record. It is not the complete legal health record.[facility]
== END 2025-05-29 15:25 | disposition home or self-care (01) ==
LOC: HO.HMCSH 14:34
PROVIDERS: PCP Internal Medicine; Visit Provider Internal Medicine
DX: G54.2 Cervical root disorders, not elsewhere classified (principal); I10 Essential (primary) hypertension; Z23 Encounter for immunization

== ENCOUNTER → 2025-05-29 14:34 | Outpatient (BNVA) | payer MEDICARE, SELFPAY | PROVIDERS: PCP Internal Medicine; Visit Provider Internal Medicine | DX: I10 Essential (primary) hypertension (principal); G54.2 Cervical root disorders, not elsewhere classified; Z23 Encounter for immunization | CPT/HCPCS: 90471; 90656; 96127; 99212 ==